=== PATIENT | female | born 1940 | race Caucasian/White ===

== ENCOUNTER → 2017-01-30 | Outpatient (REF) | payer MEDICARE, MEDICAID | LOC: M SFHCPLAZ 16:55 | PROVIDERS: ATTEND Family Medicine | DX: R30.0 Dysuria (principal); E11.9 Type 2 diabetes mellitus without complications | CPT/HCPCS: 36415; 81002; 83036; 87088; 87186; G0463 ==

== ENCOUNTER → 2017-01-30 | Outpatient (REF) | payer MEDICARE, MEDICAID | LOC: M SFHCPLAZ 11:10 | PROVIDERS: ATTEND Family Medicine | DX: R30.0 Dysuria (principal); E11.9 Type 2 diabetes mellitus without complications ==

== ENCOUNTER 2017-09-02 00:31 | Inpatient (IN) | payer MEDICAID, MEDICARE, OTHER ==
[~2017-09-02] VITALS: Ht 152.4 cm; Wt 60.5 kg
[2017-09-02] MEDS ORDERED: JANU25TA PO (00:44)
[2017-09-02] MEDS ORDERED: POTA10CA32 PO (00:44)
[2017-09-02] MEDS ORDERED: HYDR12.55 PO (00:44)
[2017-09-02] MEDS ORDERED: METO1TAB32 PO (00:44)
[2017-09-02] MEDS ORDERED: GLIP2.5T6 PO (00:44)
[2017-09-02] MEDS ORDERED: EZET10TA PO (00:44)
[2017-09-02] MEDS ORDERED: AMLO10TA2 PO (00:44)
[2017-09-02 01:41] LABS: BASO % 0.5 % (0.0-1.0); EOS # 0.2 10^3/uL (0.0-0.50); EOS % 2.3 % (0.0-3.0); IMMATURE GRANULOCYTE % 0.4 % (0-0); LYMPH # 2.3 10^3/uL (1.5-4.5); MEAN CORPUSCULAR HGB CONC 34.3 g/dl (32.0-36.5); MEAN CORPUSCULAR VOLUME 90.5 fl (80.0-96.0); MONO # 0.8 10^3/uL (0.0-0.8); MONO % 10.2 % (0.0-5.0); NEUTROPHILS # 4.7 10^3/uL (1.8-7.7); NEUTROPHILS % 58.6 % (36.0-66.0); PLATELET COUNT, AUTOMATED 228 10^3/uL (150-450); RED CELL DISTRIBUTION WIDTH 13.6 % (11.5-14.5); WHITE BLOOD COUNT 8.1 10^3/uL (4.0-10.0)
[2017-09-02 01:45] LABS: CALCIUM LEVEL 9.7 MG/DL (8.8-10.2); CREATININE FOR GFR 1.47 MG/DL (0.55-1.02); GLOMERULAR FILTRATION RATE 36.7 (>39); INR 0.98; POTASSIUM SERUM 3.4 MEQ/L (3.5-5.1)
[2017-09-02] MEDS ORDERED: HYDR25TAB PO (02:08)
[2017-09-02] MEDS ORDERED: B CO1TAB3 PO (02:08)
[2017-09-02] MEDS ORDERED: BAYE325T12 PO (02:08)
[2017-09-02] MEDS ORDERED: GLIP1TAB49 PO (02:08)
[2017-09-02] MEDS ORDERED: K-TA1TAB PO (02:08)
[2017-09-02] MEDS ORDERED: GASTROGRAFIN SOLUTION 30ML (Q9963) As Ordered ONE (02:09)
[2017-09-02] MEDS ORDERED: GASTROGRAFIN SOLUTION 30ML (Q9963) PO ONE ×2 (02:15→02:45)
[2017-09-02] MEDS ORDERED: GLUCAGON FOR INJ 1 MG VIAL (J1610) SC PRN (02:30)
[2017-09-02] MEDS ORDERED: DEXTROSE 50% 50 ML SYRINGE IV PRN (02:30)
[2017-09-02] MEDS ORDERED: ONDANSETRON 4MG/2ML VIAL (J2405) IV PRN (02:30)
[2017-09-02] MEDS ORDERED: GLUCOSE 4 GM CHEW TABLET PO PRN (02:30)
[2017-09-02] MEDS ORDERED: LR 1,000 ML IV SCH (02:30)
[2017-09-02] MEDS ORDERED: ACETAMINOPHEN TAB 650MG DOSE (2X325MG) PO PRN (02:30)
[2017-09-02] MEDS ORDERED: POTASSIUM CHLORIDE 10 MEQ SR TABLET PO ONE (02:30)
[2017-09-02 02:32] LABS: MAGNESIUM LEVEL 2.1 MG/DL (1.8-2.4)
--- NOTE | 2017-09-02 03:06 | HPE ---
DATE OF ADMISSION: 09/02/2017 PRIMARY CARE PROVIDER: Dr. Gamaliel Pickens. CHIEF COMPLAINT: Bright red blood per rectum. HISTORY OF PRESENT ILLNESS: This is a 76-year-old female patient with underlying medical history of hypertension, type 2 diabetes not insulin dependent, chronic kidney disease (CKD), sees Dr. Doshi, abdominal aortic aneurysm repaired with graft 4 years ago, thoracic aortic aneurysm. Patient presented to the hospital with an episode of bright red blood per rectum. As per patient, was a lot fresh blood initially and later became more of a clotty, two more episodes in the hospital and that was more of clots. Rectal exam during the emergency room showing blood on rectal exam. Patient denies any lightheadedness, chest pain, pressure or discomfort. Reported gassy. Reported history of hemorrhoid bleed. Denies history of diverticulitis. Denies history of atrial fibrillation, is only on aspirin. Denies any chest pain, pressure or discomfort, nausea, vomiting, abdominal pain, shortness of breath. Currently comfortable. Reported bleeding has been slowly getting better with each subsequent bowel movement, a total of three have been reported. No colonoscopy as per patient. ALLERGIES: No known drug allergies. PAST MEDICAL HISTORY: 1. Hypertension. 2. Type 2 diabetes not insulin dependent. 3. CKD. 4. Abdominal aortic aneurysm status post graft. 5. Thoracic aortic aneurysm. PAST SURGICAL HISTORY: 1. Abdominal aortic aneurysm graft. 2. Bilateral tubal ligation. FAMILY HISTORY: Father from ruptured aneurysm. Mother at age 89, had type 2 diabetes and gastrointestinal (GI) bleed. Sibling with diabetes. SOCIAL HISTORY: Quit smoking 23 years ago. Denies alcohol use or illicit drug use. REVIEW OF SYSTEMS: Negative other than bright red blood per rectum and reported gassy. HOME MEDICATIONS: - Norvasc 10 mg by mouth daily - aspirin 325 by mouth daily - vitamin B complex one tablet by mouth daily - glipizide 3 mg by mouth daily - hydrochlorothiazide 25 mg by mouth daily - metoprolol 25 mg by mouth twice a day - potassium chloride 30 mEq by mouth twice a day - Januvia 25 mg by mouth daily PHYSICAL EXAMINATION: VITAL SIGNS: Temperature 97.3, pulse 106, respirations 20, blood pressure 134/81, pulse oximetry 98% on room air. GENERAL: Patient alert and oriented times three in no acute distress. HEENT: Normocephalic, atraumatic. PULMONARY: Bilaterally clear to auscultation. CARDIAC: Regular rate and rhythm. Normal S1, S2. ABDOMEN: Soft, nontender. Positive bowel sounds. EXTREMITIES: No clubbing, cyanosis or edema. LABORATORY: WBC 8.1, hemoglobin and hematocrit 14.3/41.7, platelets 228. Chemistry: Sodium 138, potassium 3.4, chloride 102, bicarbonate 29, BUN 28, creatinine 1.47. ASSESSMENT AND PLAN: This is a 76-year-old female patient with underlying medical history of hypertension, type 2 diabetes non-insulin dependent, chronic kidney disease (CKD), abdominal aortic aneurysm and thoracic aortic aneurysm, presented with bright red blood per rectum. 1. Bright red blood per rectum. Likely secondary to gastrointestinal (GI) bleed. Hemoglobin is stable with stable vital signs. Followup orthostatics. Withholding aspirin for now. Intravenous (IV) fluids. Clear liquid diet. Will get CT scan. Likely diverticular bleed. Patient will eventually need a colonoscopy. In the meantime, will continue to monitor hemoglobin and hematocrit. Transfuse for hemoglobin less than 8. 2. Type 2 diabetes. Holding oral medication. Insulin as per protocol. Followup fingersticks. 3. CKD. Currently at baseline. IV fluids. Followup blood urea nitrogen (BUN) and creatinine. Followup urine output. 4. Abdominal aortic aneurysm and thoracic aortic aneurysm. Patient currently asymptomatic. Will get a chest x-ray. Outpatient followup. 5. Hypertension. Holding hydrochlorothiazide. Continue Norvasc. Monitor blood pressure. 6. Hypokalemia. Followup magnesium. Supplement potassium. 7. Deep venous thrombosis (DVT) prophylaxis. Sequential compression device, avoid pharmacological agents given GI bleed. DISPOSITION: Will monitor patient's hemoglobin and hematocrit. Transfuse as needed. Advance diet as tolerated. MTDD
--- NOTE | 2017-09-02 04:40 | REPUSA ---
CLINICAL HISTORY: Abdominal pain. TECHNIQUE: Multiple axial, sagittal and coronal CT images were obtained through the abdomen and pelvi s without administration of IV contrast material. Patient ingested oral contrast. COMMENTS: Comparison to the prior exam performed on 05/27/2015. Unchanged fat containing umbilical hernia without incarceration. Unchanged fat containing infraumbilical anterior abdominal wall hernia containing nonincarcerated fat . Increase in the size of the lower thoracic/upper abdominal aortic aneurysm measuring 6.9 cm on the cu rrent exam. Surgical repair of infrarenal abdominal aortic aneurysm. No evidence of periaortic hematoma or fat stranding. Uncomplicated sigmoid diverticulosis is again identified. Unchanged cholelithiasis. The liver is of uniform attenuation without mass or defect. There is no intra or extrahepatic biliary ductal dilatation. The spleen is normal. The gallbladder is within normal limits. The pancreas is of normal contour and attenuation characteristics. There is no evidence of adrenal mass. Mild left renal atrophy. No renal or ureteral calculi are identified. There is no hydroureter or hydronephrosis. There is no evidence for appendicitis. No evidence for small or large bowel obstruction. There is no evidence of abdominal ascites or lympha denopathy. There is no evidence of intrinsic or extrinsic bladder mass. There is no pelvic ascites or lymphadeno dino. Images of the lung bases show no evidence of pleural or parenchymal mass. There are no pleural effusi ons. The bony structures are free of lytic or blastic lesions. Multilevel degenerative changes are seen in volving the thoracolumbar spine. Scattered calcifications are seen involving the aorta and major branches compatible with atherosclero sis. IMPRESSION: Increase in the size of the lower thoracic/upper abdominal aortic aneurysm. This needs a surgical con sultation. No surrounding hematoma or periaortic and fat stranding. Surgical repair of infrarenal abdominal aortic aneurysm. Unchanged cholelithiasis and uncomplicated diverticulosis. Thank you for your kind referral of this patient.
[2017-09-02 05:00] VITALS: BP 150/95
[2017-09-02 05:47] LABS: MEAN CORPUSCULAR HGB CONC 34.2 g/dl (32.0-36.5); MEAN CORPUSCULAR VOLUME 90.6 fl (80.0-96.0); RED CELL DISTRIBUTION WIDTH 13.6 % (11.5-14.5); WHITE BLOOD COUNT 9.2 10^3/uL (4.0-10.0)
[2017-09-02 06:12] LABS: ALBUMIN 3.3 GM/DL (3.2-5.2); ALBUMIN/GLOBULIN RATIO 0.8 (1.00-1.93); BILIRUBIN,TOTAL 0.5 MG/DL (0.2-1.0); CALCIUM LEVEL 8.9 MG/DL (8.8-10.2); CREATININE FOR GFR 1.34 MG/DL (0.55-1.02); GLOMERULAR FILTRATION RATE 40.8 (>39); MAGNESIUM LEVEL 1.9 MG/DL (1.8-2.4); POTASSIUM SERUM 3.7 MEQ/L (3.5-5.1); TOTAL PROTEIN 7.4 GM/DL (6.4-8.2)
--- NOTE | 2017-09-02 07:23 | REP ---
Clinical: Thoracic aortic aneurysm. Technique: PA and lateral. Comparison: 03/01/2008. Findings: PA and lateral views demonstrate a tortuous thoracic aorta and aneurysmal dilatation cannot definitively be excluded. The cardiac silhouette is normal. The lung flaherty are clear. No consolidation, effusion, or pneumothorax. Skeletal structures are intact. Impression: Tortuous thoracic aorta. Cannot exclude aneurysmal dilatation. Signed by Nura Mcdaniels MD 09/02/2017 07:14 A
[2017-09-02 08:00] VITALS: BP 143/85
[2017-09-02] MEDS: amLODIPine 10 MG TAB PO SCH (08:12)
[2017-09-02] MEDS: POTASSIUM CHLORIDE 10 MEQ SR TABLET PO SCH ×2 (08:12→20:35)
[2017-09-02] MEDS: METOPROLOL SUCC *XL* 25MG TAB (TopROL *XL*) PO SCH ×2 (08:12→20:35)
[2017-09-02] MEDS: VITAMIN B COMPLEX/VIT C CAP PO SCH (08:12)
[2017-09-02] MEDS: HumaLOG INSULIN (NovoLOG) PER UNIT SC SCH ×2 (08:13→11:38)
[2017-09-02] MEDS: SENOKOT S TAB PO SCH ×2 (08:17→20:38)
--- NOTE | 2017-09-02 09:52 | IPN ---
DATE: 09/02/2017 Fina is seen in intensive care unit (ICU). She was admitted with lower gastrointestinal bleed, probably diverticular bleeding with perfuse rectal bleeding that has spontaneously stopped. She has never had a colonoscopy before. She has declined recommendations for this. She has a history of abdominal aortic aneurysm, thoracic aortic aneurysm and chronic kidneys disease, type 2 diabetes, hypertension. She is followed by a service trainer for her chronic kidney disease. I reviewed her office records. Medications in the office are: - hydrochlorothiazide 25 mg daily - potassium chloride 10 mEq twice a day - Januvia 25 mg daily - Zetia 10 mg daily - metoprolol succinate ER 25 mg twice a day - glipizide ER 5 mg daily - aspirin 325 mg daily - vitamin B complex IMMUNIZATIONS: She has had a Pneumovax in the past. I do not think she has had her Prevnar. She has a known thoracic aortic aneurysm and has a known abdominal aortic aneurysm status post repair. PHYSICAL EXAMINATION: VITAL SIGNS: Stable. Blood pressure 143/85, heart rate in the 80s. GENERAL APPEARANCE: She is alert to person, speaking with her daughter, resting comfortably, not pale. LUNGS: Clear. HEART: Regular rate and rhythm ABDOMEN: Soft, nontender, nondistended. EXTREMITIES: No peripheral edema. LABS: Hemoglobin 12.9, electrolytes are unremarkable. Creatinine 1.3, potassium 3.7. IMPRESSION: Lower gastrointestinal bleed, probably diverticular in origin. PLAN: 1. Continue serial CBCs. I do not think she needs a monitored bed. She is not orthostatic, hypotensive or actively bleeding. I will transfer her up to the floor. Consult GI. She would like a colonoscopy done while an inpatient. She does not want to go home and have to do the prep for this as she is frail and would need help with this. Hopefully, this can be done while she is still in the hospital. 2. Lower thoracic/upper abdominal aortic aneurysm. Apparently, this has increased in size compared to a CT from a year ago. This can be addressed as an outpatient. Dr. Pickens follows her. She has a known aneurysm. I reviewed the records from the office. I do not see who is following her for this as far as vascular surgery, but this can be dealt with as an outpatient. 3. Hypertension: Blood pressure is adequate. Continue her amlodipine and metoprolol. 4. Hyperlipidemia: Does not tolerate statin. She is on Zetia. 5. Diabetes: Oral medications are on hold. She is on a sliding scale with coverage while inpatient. She can resume her oral medication on discharge.
[2017-09-02 12:00] VITALS: BP 118/76
[2017-09-02 12:25] VITALS: BP 134/88
[2017-09-02 16:00] VITALS: BP 134/82
[2017-09-02 20:00] VITALS: BP 141/83
[2017-09-02] MEDS: EZETIMIBE 10 MG TAB (ZETIA) PO SCH (20:35)
[2017-09-02] MEDS ORDERED: HumaLOG INSULIN (NovoLOG) PER UNIT SC SCH (21:00)
--- NOTE | 2017-09-02 22:42 | ECGEPIP ---
Stationary ECG Study [facility] Test Date: 2017-09-02 Pat Name: MIRA JOSEPH Department: Room: [place] [address] Gender: F Soda Maker: marivel : 1940 Requested By: DANIEL MILLER Order Number: [id number] Reading MD: Rowdy Espinal Measurements Intervals [place] Rate: 81 P: 18 AK: 158 QRS: 13 QRSD: 97 T: 26 QT: 394 QTc: 458 Interpretive Statements SINUS RHYTHM NONSPECIFIC T-WAVE ABNORMALITY No prior ECG available for comparison at the time of interpretation. Electronically Signed On 09-02-2017 22:42:21 EDT by Rowdy Espinal
[2017-09-03 04:00] VITALS: BP 120/59
[2017-09-03 06:58] LABS: MEAN CORPUSCULAR HEMOGLOBIN 30.5 pg (27.0-33.0); MEAN CORPUSCULAR HGB CONC 33.7 g/dl (32.0-36.5); MEAN CORPUSCULAR VOLUME 90.4 fl (80.0-96.0); RED CELL DISTRIBUTION WIDTH 13.7 % (11.5-14.5); WHITE BLOOD COUNT 6.5 10^3/uL (4.0-10.0)
[2017-09-03 07:27] LABS: CALCIUM LEVEL 9.7 MG/DL (8.8-10.2); CREATININE FOR GFR 1.12 MG/DL (0.55-1.02); GLOMERULAR FILTRATION RATE 50.2 (>39); POTASSIUM SERUM 3.9 MEQ/L (3.5-5.1)
[2017-09-03 08:00] VITALS: BP 119/67
[2017-09-03] MEDS: HumaLOG INSULIN (NovoLOG) PER UNIT SC SCH ×2 (08:59→09:00)
[2017-09-03] MEDS: SENOKOT S TAB PO SCH ×2 (09:00→20:35)
[2017-09-03] MEDS: POTASSIUM CHLORIDE 10 MEQ SR TABLET PO SCH ×2 (09:00→20:34)
[2017-09-03] MEDS: amLODIPine 10 MG TAB PO SCH (09:01)
[2017-09-03] MEDS: VITAMIN B COMPLEX/VIT C CAP PO SCH (09:02)
[2017-09-03] MEDS: METOPROLOL SUCC *XL* 25MG TAB (TopROL *XL*) PO SCH ×2 (09:03→20:35)
--- NOTE | 2017-09-03 09:25 | IPN ---
DATE: 09/03/2017 Fina is seen in pediatrics. She is wandering the halls. She has had no more rectal bleeding. She was seen by Dr. Garcia. Colonoscopy planned for tomorrow, per patient. PHYSICAL EXAMINATION: VITAL SIGNS: Stable. 119/67. LUNGS: Clear. HEART: Regular rhythm. ABDOMEN: Soft, nontender, nondistended. No masses. EXTREMITIES: No peripheral edema. LABORATORY DATA: Electrolytes unremarkable. Creatinine is down to 1.1. Hemoglobin is stable at 12.7. IMPRESSION: 1. Bright red blood per rectum, probably from diverticular bleed. Colonoscopy tomorrow. Discharge after that. Hemoglobin and hematocrit are stable. 2. Lower thoracic/upper abdominal aortic aneurysm. This can be followed up as an outpatient. It is increased in size compared to a CT from 2015, which was 2 years ago (mistakenly indicated 1 year ago yesterday). This is a previously known aneurysm. She has followed with Dr. Hudson at [facility] in the past. She indicates that she does not want to followup on this. I told her that she should at least consider following up on this and could see Dr. Kimble who is here at [facility] now. She will discuss with Dr. Pickens when she sees him. 3. Hypertension. Well controlled on current regimen. 4. Hyperlipidemia. She does not tolerate statins. She is on Zetia. 5. Diabetes. Oral medications are on hold. Blood sugars are normal. I am stopping her fingersticks and coverage, as she has not required any coverage and her blood sugar has been normal in the hospital.
[2017-09-03] MEDS ORDERED: GOLYTELY SOLN 4000 ML BTL PO ONE (15:00)
[2017-09-03 16:00] VITALS: BP 133/85
[2017-09-03 20:00] VITALS: BP 132/67
[2017-09-03] MEDS: EZETIMIBE 10 MG TAB (ZETIA) PO SCH (20:33)
[2017-09-03] MEDS ORDERED: SODIUM CHLORIDE 0.9% 1000 ML IV ONE (23:15)
[2017-09-03 23:30] VITALS: BP 107/56
--- NOTE | 2017-09-03 23:49 | IPNPDOC ---
Text Note Date of Service The patient was seen on 09/03/17. NOTE Evening resident and attending were contacted regarding patient having more BRBPR again. She was admitted for GI bleed will have colonoscopy tomorrow. She started bleeding again after received bowel prep and she has been going to bathroom about 4 times in an hour. BP dropped from 132/67 to 107/56. NS 500 ml was given. Patient has signed consent for transfusion. She also brought in her MOLST form and stated she is DNR/DNI. Currently she is feeling well, no chest pain, shortness of breath, no dizziness. Will check BP every half hour and repeat CBC. Will considering transfer patient to PCU if patient's systolic BP drops to 90s or if she is symptomatic. Will also have low thresh bridges to transfuse her, depending on what her CBC is like after the fluid bolus. Will also hold her bowel prep for 5am due to it seems to make her bleeding worse. Addendum: Patient's repeat CBC shows Hgb at above 11 even after 500 ml of bolus , therefore will not transfuse at this point. Will continue to trend h/h and will transfuse if patient appears to be loosing large amount of blood or if h/h drops further or if patient become symptomatic with dizziness, tachycardia or reduced blood pressure. Patient has been kept NPO for possible colonoscopy. Patient has been discussed with attending Dr. Naidu. GME ATTESTATION My preceptor for this patient encounter was physically present in the building during the encounter and was fully available. As needed, all aspects of the patient interview, examination, medical decision making process, and medical care plan development were reviewed and approved by the preceptor. Preceptor is aware and concurs with the plan as stated in the body of this note and will attest to such by his/her cosignature. VS,Fishbone, I+O VS, Fishbone, I+O Laboratory Tests 09/03/17 06:43 Red Blood Count 4.17, Mean Corpuscular Volume 90.4, Mean Corpuscular Hemoglobin 30.5, Mean Corpuscular Hemoglobin Concent 33.7, Red Cell Distribution Width 13.7 , Calcium Level 9.7 09/03/17 18:27 Vital Signs Date Time Temp Pulse Resp B/P (MAP) Pulse Ox O2 Delivery O2 Flow Rate FiO2 09/03/17 20:35 74 132/67 09/03/17 20:00 97.8 18 97 Room Air I&O- Last 24 Hours up to 6 AM 09/04/17 06:00 Intake Total 2790 ml Output Total 400 ml Balance 2390 ml KP RICE DO Sep 03, 2017 23:49
[2017-09-04] VITALS (14 sets, daily range): BP systolic 110–161; BP diastolic 70–90
[2017-09-04 02:09] LABS: MEAN CORPUSCULAR HGB CONC 33.9 g/dl (32.0-36.5); MEAN CORPUSCULAR VOLUME 91.3 fl (80.0-96.0); RED CELL DISTRIBUTION WIDTH 13.7 % (11.5-14.5); WHITE BLOOD COUNT 8.6 10^3/uL (4.0-10.0)
[2017-09-04] MEDS ORDERED: GOLYTELY SOLN 4000 ML BTL PO ONE (05:00)
[2017-09-04 08:11] LABS: MEAN CORPUSCULAR HEMOGLOBIN 30.9 pg (27.0-33.0); MEAN CORPUSCULAR HGB CONC 34.2 g/dl (32.0-36.5); MEAN CORPUSCULAR VOLUME 90.5 fl (80.0-96.0); RED CELL DISTRIBUTION WIDTH 13.6 % (11.5-14.5)
[2017-09-04] MEDS: SENOKOT S TAB PO SCH ×2 (08:31→20:56)
[2017-09-04] MEDS: POTASSIUM CHLORIDE 10 MEQ SR TABLET PO SCH ×2 (08:34→21:25)
[2017-09-04] MEDS: VITAMIN B COMPLEX/VIT C CAP PO SCH (08:34)
[2017-09-04 08:35] LABS: CALCIUM LEVEL 9.3 MG/DL (8.8-10.2); GLOMERULAR FILTRATION RATE 57.2 (>39); MAGNESIUM LEVEL 1.9 MG/DL (1.8-2.4); POTASSIUM SERUM 3.9 MEQ/L (3.5-5.1)
[2017-09-04] MEDS ORDERED: LR 1,000 ML IV SCH (08:45)
[2017-09-04] MEDS ORDERED: LIDOCAINE 2% INJ 100 MG/5 ML SDV (FOR ANES.) As Ordered ONE (13:10)
[2017-09-04] MEDS ORDERED: PROPOFOL 200 MG/20 ML VIAL As Ordered ONE (13:10)
--- NOTE | 2017-09-04 15:12 | IPN ---
DATE: 09/04/2017 The patient seen and examined. The patient had bowel prep overnight with persistent bright red blood per rectum that has recurred, about four episodes. Orthostatic was done initially with decrease from 130/79 lying to 110/77 standing. The patient is asymptomatic. Denies any chest pain, pressure or discomfort, fever or chills. VITAL SIGNS: Temperature 97.5, pulse 77, respirations 18, blood pressure 149/83, pulse ox 97% on room air. LABORATORY: WBC 7, hemoglobin and hematocrit 12/35.1, platelet 191. Chemistry: Sodium 141, potassium 3.9, chloride 106, bicarbonate 26, BUN 12, creatinine 1, magnesium 1.9. PHYSICAL EXAMINATION: GENERAL: The patient alert and oriented times three. No acute distress. HEENT: Normocephalic, atraumatic. PULMONARY: Bilateral clear to auscultation. CARDIAC: Regular rate and rhythm. Normal S1, S2. ABDOMEN: Soft, nontender, positive bowel sounds. EXTREMITIES: No clubbing, cyanosis or edema. ASSESSMENT AND PLAN: This is a 76-year-old female patient with underlying medical history of hypertension, type 2 diabetes, non-insulin dependent chronic kidney disease (CKD), abdominal aortic aneurysm, thoracic aortic aneurysm presented with bright red blood per rectum. PROBLEMS: 1. Bright red blood per rectum. Likely secondary to lower GI bleed. Hemoglobin and hematocrit is currently stable. Orthostatic positive. IV fluids. Currently nothing by mouth. Bowel prep for colonoscopy. Dr. Garcia of gastroenterology has been consulted. Consented for transfusion. 2. Type 2 diabetes. Holding oral medications. Insulin as per protocol. 3. Chronic kidney disease (CKD). BUN and creatinine currently at baseline. Continue to follow. 4. Abdominal and thoracic aortic aneurysm. CT shows enlargement. Will need outpatient followup. 5. Hypertension. Continue Norvasc and metoprolol. Doses were held this morning given GI bleed. Will restart once GI bleeding improves. 6. Dyslipidemia. The patient does not tolerate statin. Continue Zetia. 7. Deep venous thrombosis (DVT) prophylaxis. Sequential compression device. DISPOSITION: Pending colonoscopy, clinical improvement. Followup hemoglobin and hematocrit.
--- NOTE | 2017-09-04 15:34 | ROOR ---
Patient Name: Fina Kumar Procedure Date: 09/04/2017 2:34 PM Date of : 1940 Age: 76 Room: [facility] Gender: Female Note Status: Finalized Procedure: Total Colonoscopy + Hot Snare Polypectomy + Bx. Indications: Rectal bleeding Providers: Bean Garcia MD Referring MD: Gamaliel Pickens MD Requesting Provider: Medicines: Monitored Anesthesia Care Complications: No immediate complications. Procedure: Pre-Anesthesia Assessment: - The heart rate, respiratory rate, oxygen saturations, blood pressure, adequacy of pulmonary ventilation, and response to care were monitored throughout the procedure. The Colonoscope was introduced through the anus and advanced to the cecum, identified by appendiceal orifice and ileocecal valve. The colonoscopy was performed without difficulty. The patient tolerated the procedure well. The quality of the bowel preparation was excellent. Findings: The perianal and digital rectal examinations were normal. Multiple small and large-mouthed diverticula were found in the recto-sigmoid colon, sigmoid colon and descending colon. A sessile non-obstructing medium-sized mass was found in the rectum. No bleeding was present. This was biopsied with a cold forceps for histology. A medium polyp was found at 20 cm proximal to the anus. The polyp was pedunculated. The polyp was removed with a hot snare. Resection and retrieval were complete. A small polyp was found at 70 cm proximal to the anus. The polyp was carpet-like. The polyp was removed with a jumbo cold forceps. Resection and retrieval were complete. The exam was otherwise without abnormality on direct and retroflexion views. Impression: - Diverticulosis in the recto-sigmoid colon, in the sigmoid colon and in the descending colon. - Rule out malignancy, tumor in the rectum. Biopsied. - One medium polyp at 20 cm proximal to the anus, removed with a hot snare. Resected and retrieved. - One small polyp at 70 cm proximal to the anus, removed with a jumbo cold forceps. Resected and retrieved. - The examination was otherwise normal on direct and retroflexion views. - The exam was otherwise normal to the cecum. Recommendation: - Patient has a contact number available for emergencies. The signs and symptoms of potential delayed complications were discussed with the patient. Return to normal activities tomorrow. Written discharge instructions were provided to the patient. - [facility] patient to [facility] for [facility] care. - Full liquid diet. - Advance diet as tolerated. - Await pathology results. - Telephone GI clinic for pathology results in 1 week. - Refer to a surgeon at appointment to be scheduled. - The findings and recommendations were discussed with the patient and their family. - The findings and recommendations were discussed with the referring physician. Bean Garcia MD Bean Garcia MD 09/04/2017 3:34:27 PM This report has been signed electronically. Number of Addenda: 0 Note Initiated On: 09/04/2017 2:34 PM Estimated Blood Loss: Estimated blood loss: none.
[2017-09-04] MEDS: METOPROLOL SUCC *XL* 25MG TAB (TopROL *XL*) PO SCH (21:00)
[2017-09-04] MEDS: EZETIMIBE 10 MG TAB (ZETIA) PO SCH (21:25)
[2017-09-05] VITALS: BP_SYST 118; BP_SYST 126; BP_SYST 137; BP_SYST 156; BP_DIAS 75; BP_DIAS 77; BP_DIAS 78; BP_DIAS 82
[2017-09-05 04:00] VITALS: BP 130/83
[2017-09-05 05:14] LABS: MEAN CORPUSCULAR HEMOGLOBIN 30.6 pg (27.0-33.0); MEAN CORPUSCULAR HGB CONC 33.7 g/dl (32.0-36.5); MEAN CORPUSCULAR VOLUME 90.8 fl (80.0-96.0); RED CELL DISTRIBUTION WIDTH 13.4 % (11.5-14.5); WHITE BLOOD COUNT 9.3 10^3/uL (4.0-10.0)
[2017-09-05 05:34] LABS: CALCIUM LEVEL 9.5 MG/DL (8.8-10.2); CREATININE FOR GFR 1.07 MG/DL (0.55-1.02); GLOMERULAR FILTRATION RATE 52.9 (>39); MAGNESIUM LEVEL 1.9 MG/DL (1.8-2.4); POTASSIUM SERUM 3.5 MEQ/L (3.5-5.1)
[2017-09-05 08:00] VITALS: BP_SYST 120; BP_SYST 143; BP_SYST 144; BP_DIAS 76; BP_DIAS 88; BP_DIAS 92
[2017-09-05] MEDS: POTASSIUM CHLORIDE 10 MEQ SR TABLET PO SCH (08:47)
[2017-09-05] MEDS: VITAMIN B COMPLEX/VIT C CAP PO SCH (08:47)
[2017-09-05] MEDS: METOPROLOL SUCC *XL* 25MG TAB (TopROL *XL*) PO SCH (08:50)
[2017-09-05] MEDS: SENOKOT S TAB PO SCH (08:50)
[2017-09-05 09:53] VITALS: BP 135/85
[2017-09-05] MEDS: amLODIPine 10 MG TAB PO SCH (09:53)
--- NOTE | 2017-09-05 10:49 | CR.PDOC ---
[facility] Consultation Consultation DATE OF CONSULTATION: Sep 02, 2017 at 00:31 REFERRING PROVIDER: Dr. Eubanks REASON FOR CONSULTATION/CHIEF COMPLAINT: Thoracoabdominal aortic aneurysm. HISTORY OF PRESENT ILLNESS: Patient is a 76-year-old female with a history of a thoracoabdominal aortic aneurysm and an infrarenal abdominal aortic aneurysm. The patient has previously undergone repair of her infrarenal abdominal aortic aneurysm with an open repair. Patient presented to the hospital with bright red blood per rectum and was evaluated and found to have a mass in the rectum on colonoscopy with 2 polyps which were removed. Patient was referred for surgical evaluation for the rectal mass. Consultation was requested regarding her thoracoabdominal aortic aneurysm in the presence of the mass and possible need for surgical resection. Patient states that after her open abdominal aortic injury repair she did well and was subsequently discharged home within 6 days. Patient denies any rest pain, claudication, TIAs, amaurosis fugax, dysarthria, paralysis, paresis, chest pain or shortness of breath. I have reviewed the CT scan which shows an thoracoabdominal aortic aneurysm which extends into the origin of the celiac and superior mesenteric arteries and measures 6.9 cm in maximal diameter. ALLERGIES: Please see below. HOME MEDICATIONS: Please see below. PAST MEDICAL HISTORY: 1. Hypertension. 2. Diabetes mellitus type 2. 3. Chronic kidney disease 4. Abdominal aortic aneurysm status post repair. 5. Thoracoabdominal aortic aneurysm. PAST SURGICAL HISTORY: 1. Bilateral tubal ligation 2. Open abdominal aortic aneurysm repair FAMILY HISTORY: Father: Ruptured abdominal aortic aneurysm Mother: Type 2 diabetes, gastrointestinal hemorrhage Siblings: Diabetes mellitus Unexpected deaths due to medical reasons: Father secondary to ruptured aortic aneurysm SOCIAL HISTORY: Marital status and/or living arrangements: Lives alone in an apartment Tobacco use: Previous tobacco use, quit smoking approximately 23 years ago ETOH: Denies Illicit drug use: Denies IV drug use: Denies REVIEW OF SYSTEMS: CONSTITUTIONAL: Negative. HEENT: Negative. CARDIOVASCULAR: Thoracoabdominal aortic aneurysm which has been followed regularly. RESPIRATORY: Negative. GENITOURINARY: Chronic kidney disease followed by Dr. Doshi. MUSCULOSKELETAL: Negative. GASTROINTESTINAL: Admitted to the hospital with bright red blood per rectum. SKIN: Negative. NEUROLOGICAL: Negative. PSYCHIATRIC: Negative. ENDOCRINE: Negative. HEMATOLOGIC/LYMPHATIC: Negative. ALLERGIC/IMMUNOLOGIC: Negative. PHYSICAL EXAMINATION: VITAL SIGNS: Please see below. GENERAL APPEARANCE: Lying in bed comfortably in no apparent distress. HEENT: Normal. RESPIRATORY: Clear to auscultation bilaterally with no rhonchi, crackles, or wheezes. CARDIOVASCULAR: Regular rate and rhythm with no murmurs, rubs, or gallops. ABDOMEN: Soft nontender nondistended with no palpable pulsatile mass. Well- healed midline incision. EXTREMITIES: No clubbing, cyanosis or edema. Bilateral upper and lower extremity is are well-perfused. NEUROLOGICAL: Awake alert oriented 3 with no focal deficits. PSYCHIATRIC: Normal. LABORATORY DATA: Please see below. ASSESSMENT/PLAN: 1. 76-year-old female with admission to the hospital with bright red blood per rectum and findings of 2 polyps which were removed and a rectal mass requiring surgical evaluation and possible intervention. Patient has had a previous abdominal aortic aneurysm repair with an open repair through a midline incision and has a thoracoabdominal and aneurysm which has been followed and is now increased in size to 6.9 cm in maximal diameter. The thoracoabdominal aneurysm extends into the origin of the superior mesenteric and celiac arteries. I had a long discussion with the patient regarding her options in respect to her thoracoabdominal aortic aneurysm. One option discussed would be an open thoracoabdominal repair which would be highly risky and most likely result in permanent paralysis. Another option would be a endovascular repair with bypass grafting of these. Mesenteric and celiac arteries and possibly the renal arteries but again this would be highly risky and most likely result in permanent paralysis in the lower extremities. The patient has had these discussions previously with her vascular surgeon in [place] and at that time did not wish to pursue any intervention and at this time she is telling me that she understands that if this rupture she will but does not want to go through any major surgeries regarding her recall abdominal aortic aneurysm. The patient will be evaluated by surgery regarding her rectal mass and she will discuss with them the options and possible interventions but with regards to her thoracoabdominal aortic aneurysm there is no intervention to be performed prior to any surgical intervention for her rectal mass. The patient's questions were answered. She voices understanding of the risks of repairing her aneurysm as well as the risks of continued conservative management of her aneurysm and understands that if the aneurysm ruptures this will result in . Vital Signs/I&O Vital Signs Date Time Temp Pulse Resp B/P (MAP) Pulse Ox O2 Delivery O2 Flow Rate FiO2 09/05/17 09:53 85 135/85 09/05/17 08:00 98.2 16 98 Room Air Laboratory Data Labs 24H Laboratory Tests 2 09/04/17 16:48: 09/05/17 04:56: Nucleated Red Blood Cells % (auto) 0.0, Anion Gap 8, Glomerular Filtration Rate 52.9, Blood Urea Nitrogen 10, Creatinine 1.07H, Sodium Level 138, Potassium Level 3.5, Chloride Level 102, Carbon Dioxide Level 28, Calcium Level 9.5, Magnesium Level 1.9 CBC/BMP Laboratory Tests 09/04/17 10:51 09/04/17 16:48 09/04/17 22:53 09/05/17 04:56 Red Blood Count 4.22, Mean Corpuscular Volume 90.8, Mean Corpuscular Hemoglobin 30.6, Mean Corpuscular Hemoglobin Concent 33.7, Red Cell Distribution Width 13.4 , Calcium Level 9.5 Microbiology Microbiology 09/02/17 Stool Occult Blood (CORRY) - Final, Complete Allergies Coded Allergies: No Known Allergies (Unverified , 09/02/17) Home Medications Scheduled (B Complex with C) 1 Tab Tab, 1 TAB PO DAILY, (Reported) Amlodipine Besylate (Amlodipine Besylate) 10 Mg Tab, 10 MG PO DAILY, (Reported) Aspirin (Perry Aspirin) 325 Mg Tab, 325 MG PO DAILY, (Reported) Ezetimibe (Ezetimibe) 10 Mg Tab, 10 MG PO QHS, (Reported) Glipizide (Glipizide ER) 5 Mg Tab, 5 MG PO DAILY, (Reported) Hydrochlorothiazide (Hydrochlorothiazide) 25 Mg Tab, 25 MG PO DAILY, (Reported) Metoprolol Succinate (Metoprolol Succinate ER) 25 Mg Tab, 25 MG PO BID, ( Reported) Potassium Chloride (K-Tab) 20 Meq Tab, 30 MEQ PO BID, (Reported) Sitagliptin Phosphate (Januvia) 25 Mg Tab, 25 MG PO DAILY, (Reported) Ruddy Kimble MD Sep 05, 2017 10:49
--- NOTE | 2017-09-05 11:17 | CR ---
DATE OF CONSULTATION: 09/02/2017 This is a 76-year-old female admitted to [facility] ([facility]) on 09/02/2017. The patient has a past medical history of hypertension, diabetes mellitus, chronic kidney disease, a history of abdominal aortic aneurysm repaired with graft 4 years ago and a known prior history of left thoracic aortic aneurysm. Patient presented to the hospital with bright red blood per rectum. Patient presented with rectal bleeding. No complaints of abdominal pain, change in bowel habits, or family history of colon cancer. The patient has never had a previous colonoscopy. . She has not required any blood transfusions during this hospitalization. The patient is being seen by gastroenterology (GI) for colonoscopy for evaluation of the rectal bleeding. ALLERGIES: No known declared allergies. MEDICATIONS: Hypertension, type diabetes mellitus, chronic disease, abdominal aortic aneurysm graft, and thoracic aortic aneurysm. PAST SURGICAL HISTORY: Stated as above. FAMILY HISTORY: Noncontributory to the above problem. SOCIAL HISTORY: Cigarettes: The patient does not smoke. Alcohol: Denies. REVIEW OF SYSTEMS: Noncontributory. MEDICATIONS AT HOME: Include: - Norvasc - aspirin - - glipizide - hydrochlorothiazide - PHYSICAL EXAMINATION: General: This is a well-developed, well-nourished white female in no obvious acute distress. Appears stated age. Chest: Is clear to auscultation. Cardiovascular examination: Shows a regular rhythm with no murmurs or gallops physiological split S1 to S2. Abdomen: Soft, nontender. No masses, guarding, rebound, hepatosplenomegaly. Bowel sounds positive. Extremities: No cyanosis, clubbing, edema. Homans negative. ANALYSIS: Bright red blood per rectum. Probable lower gastrointestinal (GI) bleed. The patient's counts are stable since admission of 12.9 and 37.7. The count today is 12.0 and 35.1. Chemistry was normal. IMAGING STUDIES: Including a CT on 09/02/2017 showing an increase in the size of the lower thoracic/upper abdominal aortic aneurysm. No hematoma of surrounding fat. There is repair of the infrarenal abdominal aortic aneurysm. cholelithiasis seen. unchanged gallstones. PLAN: Will be to set the patient up for a colonoscopy.
[2017-09-05 12:00] VITALS: BP 134/78
--- NOTE | 2017-09-05 17:50 | DSES ---
DATE OF ADMISSION: 09/02/2017 DATE OF DISCHARGE: 09/05/2017 CLERICAL WAREHOUSEMAN: Bean Garcia MD VASCULAR SURGEON: Mana Kimble MD GENERAL SURGEON: Aubrey Alvares MD PRIMARY CARE PROVIDER: Gamaliel Pickens MD FINAL DIAGNOSES: 1. Rectal mass. 2. Bright red blood per rectum secondary to diverticular bleed. 3. Colonic polyp. 4. Type 2 diabetes. 5. Chronic kidney disease (CKD). 6. Thoracic aortic aneurysm. 7. Hypertension. 8. Dyslipidemia. HISTORY OF PRESENT ILLNESS: This is a 76-year-old female patient with underlying medical history of hypertension, type 2 diabetes, non-insulin dependent, chronic kidney disease (CKD), sees Dr. Doshi, abdominal aortic aneurysm that was repaired with graft 4 years ago, thoracic aortic aneurysm that was not repaired, presented to the hospital with an episode of bright red blood per rectum as per patient with a lot of fresh blood initially and later became more clotting, two episodes in the emergency room. Rectal exam in the emergency room shows blood in the rectal exam. Patient denies any lightheadedness, chest pain, pressure or discomfort. Reported gassy, history of hemorrhoids. Denies any history of diverticulitis. Denies history of atrial fibrillation. Is only on aspirin. Denies history of chest pain, pressure or discomfort, nausea or vomiting, abdominal pain, shortness of breath. Currently comfortable. HOSPITAL COURSE: Patient is admitted to the hospital. Patient's hemoglobin and hematocrit was monitored and remained relatively stable. IV fluids were provided. At one point patient was orthostatic. Gastroenterology was consulted and patient underwent bowel preparation. Status post colonoscopy with polyp removal and found to have a rectal mass highly suspicious for cancer. Subsequently, general surgery was consulted as well as vascular surgery, Dr. Kimble. As per Dr. Kimble, it is highly risky to repair the thoracic aortic aneurysm and from the vascular perspective patient is optimized to proceed with rectal surgery. Case discussed with Dr. Alvares who would like to see the patient in the office next week for further discussion of management of patient's rectal mass. Pathology is still pending. Patient currently is asymptomatic, no further episodes of GI bleed with normal blood pressure and with stable hemoglobin and hematocrit, ready for discharge with further care as outpatient. VITAL SIGNS: Temperature 98.1, pulse 82, respirations 16, blood pressure 134/78, pulse oximetry 98% on room air. GENERAL: Patient alert and oriented times three, in no acute distress. HEENT: Normocephalic, atraumatic. PULMONARY: Bilaterally clear to auscultation. CARDIAC: Regular rate and rhythm, normal S1, S2. ABDOMEN: Soft, nontender. Positive bowel sounds. EXTREMITIES: No clubbing, cyanosis, or edema. LABORATORY DATA: WBC 9.3, hemoglobin and hematocrit 12.9/38.3, platelets 203. Chemistry: Sodium 138, potassium 3.5, chloride 102, bicarbonate 28, BUN 10, creatinine 1.07. DISCHARGE MEDICATIONS: - Norvasc 10 mg by mouth daily - vitamin B complex by mouth daily - ezetimibe 10 mg by mouth nightly - glipizide 5 mg by mouth daily - hydrochlorothiazide 25 mg by mouth daily - metoprolol 25 mg by mouth twice a day - potassium chloride 30 mEq by mouth twice a day - Januvia 25 mg by mouth daily Patient's aspirin has been on hold until evaluated by primary care provider and surgeon. DISCHARGE INSTRUCTIONS: Patient is instructed to followup with Dr. Alvares on 09/11/2017, followup with patient's own vascular surgeon as outpatient in 2 weeks, and followup with primary care provider in 1 week. Restarting aspirin as per primary care provider. Return to the hospital if symptoms worsen.
== END 2017-09-05 14:00 | disposition home or self-care (01) | DRG 378 ==
LOC: M ED 00:31 → M ED INP 02:25 → M ICU 05:06 → M PED 12:27 → M ICU 09-04 09:45
PROVIDERS: ADMIT Hospitalist; ATTEND Hospitalist
PROC: 0DBP8ZX Excision of Rectum, Via Natural or Artificial Opening Endoscopic, Diagnostic (ICD-10-PCS; principal; 2017-09-04 15:15)
DX: K57.93 Diverticulitis of intestine, part unspecified, without perforation or abscess with bleeding (principal); C20 Malignant neoplasm of rectum; I12.9 Hypertensive chronic kidney disease with stage 1 through stage 4 chronic kidney disease, or unspecified chronic kidney disease; E11.9 Type 2 diabetes mellitus without complications; Z66 Do not resuscitate; E78.5 Hyperlipidemia, unspecified; K63.5 Polyp of colon; I71.2 Thoracic aortic aneurysm, without rupture; N18.9 Chronic kidney disease, unspecified; E87.6 Hypokalemia; Z98.51 Tubal ligation status; Z87.891 Personal history of nicotine dependence; Z79.84 Long term (current) use of oral hypoglycemic drugs; Z79.899 Other long term (current) drug therapy

== ENCOUNTER → 2017-10-18 | Outpatient (CLI) | payer OTHER, MEDICAID ==
[~2017-10-18] MED LIST: AMLO10TA2 PO; B CO1TAB3 PO; BAYE325T12 PO; EZET10TA PO; GLIP1TAB49 PO; GLIP2.5T6 PO; HYDR12.55 PO; HYDR25TAB PO; JANU25TA PO; K-TA1TAB PO; METO1TAB32 PO; POTA10CA32 PO
[2017-10-18 18:32] LABS: FOLATE > 24.0 NG/ML; VITAMIN B12 LEVEL 1085 PG/ML
[2017-10-18 18:38] LABS: FREE T4 1.31 NG/DL (0.76-1.46)
--- NOTE | 2017-10-18 19:23 | REP ---
RIGHT LOWER EXTREMITY DUPLEX VEINS: HISTORY: Edema. There are no filling defects in the deep venous system. The deep venous system is patent. IMPRESSION: There is no deep venous thrombosis. Signed by Ketan Pritchett MD 10/18/2017 07:31 P
== END ==
LOC: M RAD 17:33
PROVIDERS: ATTEND Family Medicine
DX: R60.0 Localized edema (principal); M79.604 Pain in right leg; R53.83 Other fatigue; N18.3 Chronic kidney disease, stage 3 (moderate); Z79.899 Other long term (current) drug therapy
CPT/HCPCS: 36415; 82306; 82607; 82746; 84207; 84439; 84443; 93971; G0463

== ENCOUNTER 2017-10-25 11:17 | Day surgery (SDC) | payer OTHER, MEDICAID ==
[~2017-10-25] VITALS: Ht 154.9 cm; Wt 58.5 kg
[~2017-10-25 11:17] MED LIST changes: +LR 1,000 ML IV ONE
[2017-10-25] MEDS ORDERED: MIDAZOLAM INJ 2 MG/2 ML VIAL (J2250) As Ordered ONE (12:00)
[2017-10-25] MEDS ORDERED: PROPOFOL 200 MG/20 ML VIAL As Ordered ONE (12:00)
[2017-10-25] MEDS ORDERED: ROCURONIUM BROMIDE 50 MG/5 ML VIAL As Ordered ONE (12:00)
[2017-10-25] MEDS ORDERED: ERTAPENEM SODIUM 1 GM in APPROPRIATE DILUENT 1 EA IV ONE (12:00)
[2017-10-25] MEDS ORDERED: fentaNYL 100 MCG/2 ML INJECTION (J3010) As Ordered ONE (12:00)
[2017-10-25] MEDS ORDERED: LIDOCAINE 2% INJ 100 MG/5 ML SDV (FOR ANES.) As Ordered ONE (12:01)
[2017-10-25] MEDS ORDERED: ONDANSETRON 4MG/2ML VIAL (J2405) As Ordered ONE (12:01)
[2017-10-25] MEDS ORDERED: GLYCOPYRROLATE INJ 0.2 MG/ML 2 ML VIAL As Ordered ONE ×2 (12:03→14:59)
[2017-10-25] MEDS ORDERED: LIDOCAINE W/EPINEPHRINE 1% 20ML VIAL As Ordered ONE (12:42)
[2017-10-25] MEDS ORDERED: METOPROLOL TART 25 MG TABLET As Ordered ONE (12:44)
[2017-10-25] MEDS ORDERED: METOPROLOL TART 25 MG TABLET PO ONE (13:00)
[2017-10-25] MEDS ORDERED: NEOSTIGMINE 10 MG/10 ML VIAL (J2710) As Ordered ONE (14:59)
[2017-10-25] MEDS ORDERED: ONDANSETRON 4MG/2ML VIAL (J2405) IV PRN (15:45)
[2017-10-25] MEDS ORDERED: fentaNYL 100 MCG/2 ML INJECTION (J3010) IV PRN (15:45)
[2017-10-25] MEDS ORDERED: LR 1,000 ML IV SCH (15:45)
[2017-10-25] MEDS ORDERED: HYDROmorphone HCL 1 MG/ML SYRINGE (J1170) IV PRN (15:45)
[2017-10-25] MEDS ORDERED: KETOROLAC 30 MG/ML VIAL (J1885) As Ordered ONE (16:04)
[2017-10-25] MEDS ORDERED: KETOROLAC 30 MG/ML VIAL (J1885) IV ONE (16:15)
[2017-10-25] MEDS ORDERED: ACETAMINOPHEN TAB 650MG DOSE (2X325MG) PO PRN (16:15)
[2017-10-25] MEDS ORDERED: NORCO, ANEXSIA 5/325MG TABLET (HYDROcodone/ACETAMINOPHEN) PO PRN (16:15)
[2017-10-25 16:20] VITALS: BP 143/76
[2017-10-25 16:50] VITALS: BP 145/77
[2017-10-25 17:20] VITALS: BP 135/81
[2017-10-25 18:20] VITALS: BP 138/82
[2017-10-25] MEDS: POTASSIUM CHLORIDE 10 MEQ SR TABLET PO SCH (21:24)
[2017-10-25] MEDS: METOPROLOL SUCC *XL* 25MG TAB (TopROL *XL*) PO SCH (21:25)
[2017-10-25 22:00] VITALS: BP 112/59
[2017-10-26 02:00] VITALS: BP 117/65
[2017-10-26 06:00] VITALS: BP 112/68
[2017-10-26] MEDS ORDERED: amLODIPine 10 MG TAB PO SCH (09:00)
[2017-10-26] MEDS ORDERED: glipiZIDE XL 5 MG TABCR PO SCH (09:00)
[2017-10-26] MEDS ORDERED: SITagliptin 50 MG TAB (JANUVIA) PO SCH (09:00)
[2017-10-26] MEDS ORDERED: hydroCHLOROthiazide 25 MG TAB PO SCH (09:00)
[2017-10-26 09:56] VITALS: BP 133/75
[2017-10-26] MEDS: METOPROLOL SUCC *XL* 25MG TAB (TopROL *XL*) PO SCH (09:56)
[2017-10-26] MEDS: POTASSIUM CHLORIDE 10 MEQ SR TABLET PO SCH (09:57)
--- NOTE | 2017-10-28 09:06 | RO ---
DATE OF PROCEDURE: 10/25/2017 PREOPERATIVE DIAGNOSIS: Rectal cancer. POSTOPERATIVE DIAGNOSIS: Rectal cancer. PROCEDURE PERFORMED: Transanal resection of rectal cancer. SURGEON: Dr. Alvares ASSISTANT MANAGER BILINGUAL: Dr. Milton ANESTHESIA: General. INDICATIONS FOR PROCEDURE: The patient is a 76-year-old woman who had recently been seen in the hospital for rectal bleeding. She underwent colonoscopy. She was found to have a pedunculated polyp higher up in the colon which was felt to be the source of her bleeding and this was resected. She was also found to have a small exophytic mass in the rectum and biopsies revealed adenocarcinoma. The patient has previously undergone an open repair of an abdominal aortic aneurysm. She has one atrophic kidney. She has a 6.9 cm thoracoabdominal aortic aneurysm which unfortunately is felt to be extremely high risk for spinal cord ischemia with paralysis if this were treated. The patient has decided not to undergo any surgery. The patient does not wish to undergo an extensive rectal resection for her cancer. We have therefore discussed other alternative treatments to a low anterior resection. She is now for a transanal resection of the cancer likely to be followed by radiation therapy to reduce the risk of recurrence. OPERATIVE PROCEDURE: The patient was brought to the operating room and placed under general endotracheal anesthesia. She was rolled into a prone position and positioned into a jackknife position flexed at the hips with the lower extremities elevated on pillows at the ankle. Pressure points were padded. A digital rectal examination revealed the mass palpable in the distal rectum on the right lateral position. The perineum was prepped and draped. A Valerio anal speculum was inserted and the mass was identified. This was approximately 3-1/2 cm in length x 1-1/2 cm in width and running essentially transversely across the wall of the rectum. Retractors were placed to expose this area optimally. Two stay sutures of #2-0 Vicryl were placed above the tumor in the wall of the rectum to control the upper edge. Then using the needle tip cautery the mucosa was incised circumferentially around the mass taking a small margin on all sides. The dissection was carried down through the muscular wall of the rectum into the perirectal fat. This was elevated away from the fatty tissue and the tumor was removed. I would note that prior to beginning the dissection approximately 10 mL of 1% Xylocaine with epinephrine were infiltrated around the base of the lesion to try to diminish bleeding. Several small fragments of tissue around the edges of the wound were excised and sent with the specimen. The muscle layer was then closed with interrupted simple sutures of #3-0 Vicryl. The mucosa was then also closed with interrupted simple sutures of #3-0 Vicryl. Final inspection revealed a good closure and there was no ongoing bleeding. The retractors were removed. A light dressing of 4x4s was placed over the anus. The patient was returned to a supine position and she was awakened and extubated and transported to the recovery room in stable condition.
== END 2017-10-26 10:15 | disposition home or self-care (01) ==
LOC: M SDC 11:17 → M MSPAV 16:19 → M SDC 10-26 10:15
PROVIDERS: ATTEND Surgery
DX: C18.9 Malignant neoplasm of colon, unspecified (principal); R60.0 Localized edema; R53.83 Other fatigue; E11.22 Type 2 diabetes mellitus with diabetic chronic kidney disease; N18.4 Chronic kidney disease, stage 4 (severe); F33.0 Major depressive disorder, recurrent, mild; I12.9 Hypertensive chronic kidney disease with stage 1 through stage 4 chronic kidney disease, or unspecified chronic kidney disease; I71.6 Thoracoabdominal aortic aneurysm, without rupture; M51.9 Unspecified thoracic, thoracolumbar and lumbosacral intervertebral disc disorder; Z88.1 Allergy status to other antibiotic agents; Z88.8 Allergy status to other drugs, medicaments and biological substances; Z79.899 Other long term (current) drug therapy; Z98.51 Tubal ligation status; Z78.0 Asymptomatic menopausal state; Z90.5 Acquired absence of kidney; Z87.891 Personal history of nicotine dependence
CPT/HCPCS: 45171; 88309; 96374; J1885; J2250; J2405; J2710; J3010

== ENCOUNTER → 2017-11-05 | Outpatient (REF) | payer OTHER, MEDICAID ==
[~2017-11-05] MED LIST changes: -LR 1,000 ML IV ONE
== END ==
LOC: M LAB REF 15:18
PROVIDERS: ATTEND Internal Medicine Medical Oncology
DX: C18.9 Malignant neoplasm of colon, unspecified (principal)

== ENCOUNTER → 2018-06-17 | Outpatient (REF) | payer MEDICARE ==
[2018-06-18 09:55] LABS: APPEARANCE, URINE HAZY (CLEAR); BACTERIA, URINE AUTO NEGATIVE (NEGATIVE); BILIRUBIN, URINE AUTO NEGATIVE (NEGATIVE); BLOOD, URINE BLOOD NEGATIVE (NEGATIVE); COLOR, URINE YELLOW (YELLOW); GLUCOSE, URINE (UA) AUTO NEGATIVE (NEGATIVE); KETONE, URINE AUTO NEGATIVE (NEGATIVE); LEUKOCYTE ESTERASE, URINE AUTO TRACE (NEGATIVE); MUCUS, URINE SMALL (NEGATIVE); NITRITE, URINE AUTO NEGATIVE (NEGATIVE); PROTEIN, URINE AUTO 2+ mg/dL (NEGATIVE); RBC, URINE AUTO 0 /HPF (0-3); SPECIFIC GRAVITY URINE AUTO 1.011 (1.002-1.035); SQUAMOUS EPITHELIAL CELL UR AU 1 /HPF (0-6); WBC, URINE AUTO 18 /HPF (0-3)
== END ==
LOC: M SFHCPLAZ 09:36
DX: R30.0 Dysuria (principal)
CPT/HCPCS: 81001

== ENCOUNTER 2018-12-01 08:19 | Day surgery (SDC) | payer MEDICARE, MEDICAID ==
[~2018-12-01] VITALS: Ht 157.5 cm; Wt 61.2 kg
[~2018-12-01 08:19] MED LIST changes: -AMLO10TA2 PO; +AMLO10TA5 PO; +ASPI325T25 PO; -GLIP1TAB49 PO; +GLIP5TAB20 PO; +LIDOCAINE 2% INJ 100 MG/5 ML SDV (FOR ANES.) As Ordered ONE; +NS 1,000 ML IV ONE; +PROPOFOL 200 MG/20 ML VIAL As Ordered ONE; +VITA100067 PO
[2018-12-01] MEDS ORDERED: PROPOFOL 200 MG/20 ML VIAL As Ordered ONE (09:59)
--- NOTE | 2018-12-01 10:17 | ROOR ---
Patient Name: Fina Kumar Procedure Date: 12/01/2018 9:31 AM Date of : 1940 Age: 78 Room: [facility] Gender: Female Note Status: Finalized Procedure: Total Colonoscopy to Cecum + Cold Snare Polypectomy + Hemoclips Indications: High risk colon cancer surveillance: Personal history of colon cancer Providers: Bean Garcia MD Referring MD: Gamaliel Pickens MD Requesting Provider: Medicines: Monitored Anesthesia Care Complications: No immediate complications. Procedure: Pre-Anesthesia Assessment: - The heart rate, respiratory rate, oxygen saturations, blood pressure, adequacy of pulmonary ventilation, and response to care were monitored throughout the procedure. The Colonoscope was introduced through the anus and advanced to the cecum, identified by appendiceal orifice and ileocecal valve. The colonoscopy was performed without difficulty. The patient tolerated the procedure well. The quality of the bowel preparation was excellent. Findings: The perianal and digital rectal examinations were normal. Non-bleeding internal hemorrhoids were found during retroflexion. The hemorrhoids were small and Grade I (internal hemorrhoids that do not prolapse). Multiple small and large-mouthed diverticula were found in the recto-sigmoid colon, sigmoid colon and descending colon. Two sessile polyps were found in the ascending colon. The polyps were large in size. These polyps were removed with a cold snare. Resection and retrieval were complete. A medium polyp was found at 60 cm proximal to the anus. The polyp was pedunculated. The polyp was removed with a cold snare. Resection and retrieval were complete. To prevent bleeding after the polypectomy, two hemostatic clips were successfully placed (MR conditional). There was no bleeding at the end of the procedure. The exam was otherwise without abnormality on direct and retroflexion views. Impression: - Non-bleeding internal hemorrhoids. - Diverticulosis in the recto-sigmoid colon, in the sigmoid colon and in the descending colon. - Two large polyps in the ascending colon, removed with a cold snare. Resected and retrieved. - One medium polyp at 60 cm proximal to the anus, removed with a cold snare. Resected and retrieved. Clips (MR conditional) were placed. - The examination was otherwise normal on direct and retroflexion views. - The exam was otherwise normal to the cecum. Recommendation: - Patient has a contact number available for emergencies. The signs and symptoms of potential delayed complications were discussed with the patient. Return to normal activities tomorrow. Written discharge instructions were provided to the patient. - High fiber diet. - Discharge patient to home. - Continue present medications. - Await pathology results. - Repeat colonoscopy for surveillance based on pathology results. - Return to referring physician. - Telephone GI clinic for pathology results in 1 week. - The findings and recommendations were discussed with the patient's family. Bean Garcia MD Bean Garcia MD 12/01/2018 10:17:38 AM This report has been signed electronically. Number of Addenda: 0 Note Initiated On: 12/01/2018 9:31 AM Estimated Blood Loss: Estimated blood loss: none.
[2018-12-01 10:40] VITALS: BP 123/83
== END 2018-12-01 11:03 | disposition home or self-care (01) ==
LOC: M OPP 08:19
PROVIDERS: ATTEND Internal Medicine Gastroenterology
DX: Z86.010 Personal history of colon polyps (principal); Z85.048 Personal history of other malignant neoplasm of rectum, rectosigmoid junction, and anus; K64.0 First degree hemorrhoids; K57.30 Diverticulosis of large intestine without perforation or abscess without bleeding; D12.2 Benign neoplasm of ascending colon; E11.9 Type 2 diabetes mellitus without complications; Z87.891 Personal history of nicotine dependence; Z79.82 Long term (current) use of aspirin; Z79.899 Other long term (current) drug therapy; Z88.1 Allergy status to other antibiotic agents; Z88.8 Allergy status to other drugs, medicaments and biological substances

== ENCOUNTER → 2019-01-15 | Outpatient (REF) | payer MEDICARE, MEDICAID ==
[~2019-01-15] MED LIST changes: -LIDOCAINE 2% INJ 100 MG/5 ML SDV (FOR ANES.) As Ordered ONE; -NS 1,000 ML IV ONE; -PROPOFOL 200 MG/20 ML VIAL As Ordered ONE
[2019-01-15 18:54] LABS: HEMOGLOBIN A1c 6.9 %
[2019-01-15 19:06] LABS: CALCIUM LEVEL 9.5 MG/DL (8.8-10.2); CREATININE FOR GFR 1.93 MG/DL (0.55-1.30); GLOMERULAR FILTRATION RATE 26.7 (>39)
[2019-01-15 19:17] LABS: TOTAL 25(OH) VITAMIN D 52.4 NG/ML (30.0-100.0)
== END ==
LOC: M SFHCPLAZ 14:50
PROVIDERS: ATTEND Family Medicine
DX: E11.22 Type 2 diabetes mellitus with diabetic chronic kidney disease (principal); N18.3 Chronic kidney disease, stage 3 (moderate); E55.9 Vitamin D deficiency, unspecified

== ENCOUNTER 2019-02-27 17:00 | Emergency (ER) | payer MEDICARE, MEDICAID ==
[~2019-02-27] VITALS: Ht 157.5 cm; Wt 61.4 kg
[~2019-02-27 17:00] MED LIST changes: -COLA100C5 PO; -MIRA3350 PO
--- NOTE | 2019-02-27 18:25 | REP ---
Abdomen series: Three views. History: Abdomen pain. Question constipation. Comparison study is from September 02, 2017. Findings: Upright chest radiograph shows no evidence of infiltrate or free subdiaphragmatic air. The thoracic aorta is quite tortuous and ectatic. Distal thoracic aortic aneurysm suspected. This is unchanged from August 2017. Heart does not appear to be enlarged. Supine and erect views of the abdomen demonstrate a large gallstone in the right upper quadrant. This calcified gallstone measures 4.2 cm in greatest diameter. It is unchanged in position from comparison CT study September 02, 2017. Bowel gas pattern is normal with moderate stool in the right colon and transverse colon. No rectal or sigmoid distension is seen. No small bowel dilation is observed. Flank stripes and psoas margins are intact. No mass or organomegaly is seen. There are surgical clips in the periaortic region. Levoconvex curvature is seen. No evidence of free air. Impression: Large gallstone. Distal thoracic aortic aneurysm suspected, unchanged. Moderate proximal colonic stool. Surgical clips centrally in the abdomen. Otherwise negative. Electronically Signed by Jesus Encinas MD 02/27/2019 08:13 P
[2019-02-27] MEDS ORDERED: MIRA3350 PO (18:57)
[2019-02-27] MEDS ORDERED: COLA100C5 PO (18:57)
[2019-02-27] MEDS ORDERED: DOCUSATE SODIUM 100 MG CAP PO ONE (19:00)
[2019-02-27 19:07] VITALS: BP 145/85
--- NOTE | 2019-03-02 13:42 | ED PDOC ---
Post-Departure Follow-Up dr swartz faxed formal report of abdl series for fu Lexy Hussein MD Mar 02, 2019 13:42
== END 2019-02-27 19:09 | disposition home or self-care (01) ==
LOC: M ED 17:00
DX: K59.00 Constipation, unspecified (principal); E11.9 Type 2 diabetes mellitus without complications; I10 Essential (primary) hypertension; Q60.0 Renal agenesis, unilateral; Z79.899 Other long term (current) drug therapy; Z79.84 Long term (current) use of oral hypoglycemic drugs; Z79.82 Long term (current) use of aspirin; Z88.1 Allergy status to other antibiotic agents; Z88.8 Allergy status to other drugs, medicaments and biological substances; Z87.891 Personal history of nicotine dependence
CPT/HCPCS: 74021; 81002; 87086; 99283; G0463

== ENCOUNTER → 2019-02-27 | Outpatient (REF) | payer MEDICARE, MEDICAID ==
[~2019-02-27] MED LIST changes: +ASPI-255 PO; -ASPI325T25 PO; +COLA100C5 PO; +MIRA3350 PO
== END ==
LOC: M SFHCCLAY 16:30
PROVIDERS: ATTEND Physician Assistant
DX: R10.9 Unspecified abdominal pain (principal)

== ENCOUNTER → 2019-03-16 | Outpatient (CLI) | payer MEDICARE, MEDICAID ==
[~2019-03-16] MED LIST changes: +COLA100C5 PO; +MIRA3350 PO
[2019-03-16 19:25] LABS: BASO # 0.1 10^3/uL (0.0-0.2); BASO % 0.7 % (0.0-1.0); EOS # 0.1 10^3/uL (0.0-0.50); EOS % 1.2 % (0.0-3.0); HEMATOCRIT 41.6 % (36.0-47.0); HEMOGLOBIN 13.9 g/dl (12.0-15.5); LYMPH # 1.9 10^3/uL (1.5-4.5); LYMPH % 17.9 % (24.0-44.0); MEAN CORPUSCULAR HEMOGLOBIN 30.3 pg (27.0-33.0); MEAN CORPUSCULAR HGB CONC 33.4 g/dl (32.0-36.5); MEAN CORPUSCULAR VOLUME 90.8 fl (80.0-96.0); MONO # 1.1 10^3/uL (0.0-0.8); MONO % 10.4 % (0.0-5.0); NEUTROPHILS # 7.3 10^3/uL (1.8-7.7); PLATELET COUNT, AUTOMATED 252 10^3/uL (150-450); RED BLOOD COUNT 4.58 10^6/uL (4.00-5.40); WHITE BLOOD COUNT 10.6 10^3/uL (4.0-10.0)
[2019-03-16 19:38] LABS: CALCIUM LEVEL 9.5 MG/DL (8.8-10.2); CREATININE FOR GFR 1.58 MG/DL (0.55-1.30); GLOMERULAR FILTRATION RATE 33.6 (>39); MAGNESIUM LEVEL 2.5 MG/DL (1.8-2.4); POTASSIUM SERUM 4.1 MEQ/L (3.5-5.1); THYROID STIMULATING HORMONE 1.79 uIU/ML (0.358-3.740); THYROXINE (T4) 15.3 UG/DL (4.5-12.0)
[2019-03-16 19:39] LABS: TOTAL T3 77.7 NG/DL (60.0-181.0)
== END ==
LOC: M WUC 17:53
PROVIDERS: ATTEND Family Medicine
DX: R53.83 Other fatigue (principal); N18.3 Chronic kidney disease, stage 3 (moderate)
CPT/HCPCS: 36415; 80048; 83735; 84436; 84443; 84480; 85025; 87088; 87186; G0463

== ENCOUNTER 2019-06-08 20:39 | Inpatient (IN) | payer MEDICARE, MEDICAID ==
[~2019-06-08] VITALS: Ht 157.5 cm; Wt 57.8 kg
[~2019-06-08 20:39] MED LIST changes: -EZET10TA PO; +EZET10TA21 PO
[2019-06-08] MEDS ORDERED: ONDANSETRON 4MG/2ML VIAL (J2405) IV ONE (21:00)
[2019-06-08] MEDS ORDERED: NS 1,000 ML IV ONE (21:00)
[2019-06-08] MEDS ORDERED: PANTOPRAZOLE 40MG INJ (PROTONIX) (C9113) IV ONE (21:00)
[2019-06-08 21:01] LABS: BASO # 0.1 10^3/uL (0.0-0.2); BASO % 0.5 % (0.0-1.0); EOS # 0.1 10^3/uL (0.0-0.50); HEMATOCRIT 29.6 % (36.0-47.0); HEMOGLOBIN 9.7 g/dl (12.0-15.5); LYMPH # 2.6 10^3/uL (1.5-4.5); LYMPH % 23.5 % (24.0-44.0); MEAN CORPUSCULAR HGB CONC 32.8 g/dl (32.0-36.5); MEAN CORPUSCULAR VOLUME 94.6 fl (80.0-96.0); MONO % 8.8 % (0.0-5.0); NEUTROPHILS # 7.3 10^3/uL (1.8-7.7); NEUTROPHILS % 65.5 % (36.0-66.0); PLATELET COUNT, AUTOMATED 200 10^3/uL (150-450); RED BLOOD COUNT 3.13 10^6/uL (4.00-5.40); WHITE BLOOD COUNT 11.1 10^3/uL (4.0-10.0)
[2019-06-08 21:13] LABS: INR 1.18; PROTHROMBIN TIME 14.7 SECONDS (11.8-14.0)
[2019-06-08 21:27] LABS: ALBUMIN 2.9 GM/DL (3.2-5.2); ALT/SGPT 23 U/L (12-78); BILIRUBIN,DIRECT 0.2 MG/DL (0.0-0.2); BILIRUBIN,TOTAL 0.7 MG/DL (0.2-1.0); BLOOD UREA NITROGEN 52 MG/DL (7-18); CALCIUM LEVEL 9.1 MG/DL (8.8-10.2); CARBON DIOXIDE LEVEL 25 MEQ/L (21-32); CHLORIDE LEVEL 104 MEQ/L (98-107); CK-MB VALUE MASS < 1.0 NG/ML (<3.6); CPK CREATINE PHOSPHOKINASE 63 U/L (26-192); CREATININE FOR GFR 1.75 MG/DL (0.55-1.30); GLOMERULAR FILTRATION RATE 29.8 (>39); GLUCOSE, FASTING 215 MG/DL (70-100); LIPASE 188 U/L (73-393); MB/CK RELATIVE INDEX 1.59 (< OR =4); POTASSIUM SERUM 4.7 MEQ/L (3.5-5.1); SODIUM LEVEL 139 MEQ/L (136-145); TROPONIN I < 0.02 NG/ML (< 0.10)
[2019-06-08] MEDS ORDERED: B COTAB3 PO (23:11)
[2019-06-08] MEDS ORDERED: D31000TA PO (23:11)
[2019-06-08] MEDS: NS 1,000 ML IV SCH (23:12)
[2019-06-08] MEDS ORDERED: GLUCAGON FOR INJ 1 MG VIAL (J1610) SC PRN (23:15)
[2019-06-08] MEDS ORDERED: GLUCOSE 4 GM CHEW TABLET PO PRN (23:15)
[2019-06-08] MEDS ORDERED: DEXTROSE 50% 50 ML SYRINGE IV PRN (23:15)
--- NOTE | 2019-06-08 23:23 | HPEPDOC ---
General Date of Admission 06/08/19 Date of Service: Jun 09, 2019 Primary Care Physician: KENNEDI MONSIVAIS DO Attending Physician: MALI DELACRUZ MD Chief Complaint The patient is a 78-year-old female admitted with a reason for visit of Weakness/Vomiting. Source: Patient, Family Exam Limitations: No limitations Timing/Duration: 4-6 hours Severity: Moderate Associated Symptoms: Nausea, Vomiting, Other (, diarrhea) History of Present Illness 78 years old white female with past medical history of rectal carcinoma status post resection, hypertension, diabetes mellitus, vitamin D deficiency, constipation, has not been feeling herself lately last few days she's been tired, fatigue again today. She had a nausea, vomiting, followed by an episode of diarrhea with with coffee-ground and red blood in it and she was brought into emergency room for further workup and admission Home Medications Scheduled Aspirin (Aspirin EC) 325 Mg Tabec, 325 MG PO DAILY, (Reported) Cholecalciferol (Vitamin D3) (Vitamin D3) 1,000 Unit Tablet, 1,000 UNIT PO DAILY, (Reported) Ezetimibe (Ezetimibe) 10 Mg Tab, 10 MG PO QHS, (Reported) Glipizide (Glipizide ER) 5 Mg Tab, 5 MG PO DAILY, (Reported) Metoprolol Succinate (Metoprolol Succinate) 25 Mg Tab, 25 MG PO BID, (Reported) Sitagliptin Phosphate (Januvia) 25 Mg Tab, 25 MG PO DAILY, (Reported) Vitamin B Complex (Vitamin B Complex) 1 Each Tablet, 1 TAB PO DAILY, (Reported) Allergies Coded Allergies: cephalexin (Verified Allergy, Severe, tongue swelling, 02/19/19) atorvastatin (Verified Allergy, Intermediate, swelling, muscle aches, 02/19/19) rosiglitazone (Verified Allergy, Intermediate, swelling, 02/19/19) Past Medical History Medical History Colon carcinoma, AAA repair, history of thoracic aortic aneurysm, hypertension, diabetes Surgical History AAA repair, colon surgery Family History Significant Family History: No pertinent family hx Social History * Smoker: Denies Alcohol: Denies Drugs: denies A-FIB/CHADSVASC A-FIB History Current/History of A-Fib/PAF?: No Review of Systems Constitutional: Reports: Weakness, Fatigue; Denies: Chills, Fever, Malaise, Night Sweats, Weight Loss, Lethargy, Other Eyes: Denies: Pain, Vision change, Conjunctivae inflammation, Eyelid inflammation, Redness, Other ENT: Denies: Head Aches, Ear Pain, Dysphagia, Sinus Congestion, Post Nasal Drip, Sore Throat, Epistaxis, Other Symptoms Skin: Denies: Rash, Lesions, Jaundice, Bruising, Itching, Dry, Breakdown, Nail Changes, Other Pulmonary: Denies: Dyspnea, Cough, Pleuritic Chest Pain, Other Symptoms Cardiovascular: Denies: Chest Pain, Palpitations, Orthopnea, Paroxysmal Noc. Dyspnea, Edema, Lt Headedness, Other Symptoms Gastrointestinal: Reports: Nausea, Vomiting, Diarrhea Genitourinary: Denies: Dysuria, Frequency, Incontinence, Hematuria, Retention, Other Symptoms Hematologic: Denies: Bruising, Bleeding Excessively, Petecchia, Purpura, Enlarged Lymph Nodes, Other Hematologic Endocrine: Denies: Polydipsia, Polyphagia, Polyuria, Heat Intolerance, Cold Intolerance, Other Endocrine Sx Musculoskeletal: Denies: Neck Pain, Back Pain, Shoulder Pain, Arm Pain, Hand Pain, Leg Pain, Foot Pain, Joint Pain, Muscle Pain, Spasms, Other Symptoms Neurological: Denies: Weakness, Numbness, Incoordination, Change in speech, Con fusion, Seizures, Other Symptoms Psych: Denies: Mood Normal, Anxiety, Depression, Memory Issues, Thoughts of Self Harm, Anger, Thoughts of Harming Other, Other Psych Physical Examination General Exam: Positive: Alert, Cooperative Eye Exam: Positive: PERRLA, Conjunctiva & lids normal ENT Exam: Positive: Atraumatic, Mucous membr. moist/pink Neck Exam: Positive: Supple Chest Exam: Positive: Clear to auscultation, Normal air movement Heart Exam: Positive: Rate Normal, Normal S1, Normal S2 Abdomen Exam: Positive: Normal bowel sounds, Soft Extremity Exam: Positive: Normal pulses Skin Exam: Positive: Nl turgor and temperature Neuro Exam: Positive: Strength at 5/5 X4 ext, Sensation Intact Psych Exam: Positive: Mental status NL, Oriented x 3 Vital Signs Vital Signs Date Time Temp Pulse Resp B/P (MAP) Pulse Ox O2 Delivery O2 Flow Rate FiO2 06/08/19 22:15 79 117/70 (86) 98 06/08/19 22:09 97.3 06/08/19 21:24 14 Laboratory Data Labs 24H Laboratory Tests 2 06/08/19 20:46: Immature Granulocyte % (Auto) 0.7, White Blood Count 11.1H, Red Blood Count 3.13L, Hemoglobin 9.7L, Hematocrit 29.6L, Mean Corpuscular Volume 94.6, Mean Corpuscular Hemoglobin 31.0, Mean Corpuscular Hemoglobin Concent 32.8, Red Cell Distribution Width 14.1, Platelet Count 200, Neutrophils (%) (Auto) 65.5, Lymphocytes (%) (Auto) 23.5L, Monocytes (%) (Auto) 8.8H, Eosinophils (%) (Auto) 1.0, Basophils (%) (Auto) 0.5, Neutrophils # (Auto) 7.3, Lymphocytes # (Auto) 2.6, Monocytes # (Auto) 1.0H, Eosinophils # (Auto) 0.1, Basophils # (Auto) 0.1, Nucleated Red Blood Cells % (auto) 0.0, Prothrombin Time 14.7H, Prothromb Time International Ratio 1.18, Anion Gap 10, Glomerular Filtration Rate 29.8L, Calcium Level 9.1, Aspartate Amino Transf (AST/SGOT) 24, Alanine Aminotransferase (ALT/SGPT) 23, Alkaline Phosphatase 66, Total Bilirubin 0.7, Direct Bilirubin 0.2, Total Creatine Kinase 63, Creatine Kinase MB < 1.0, Creatine Kinase MB Relative Index 1.59, Troponin I < 0.02, Total Protein 6.0L, Albumin 2.9L, Albumin/Globulin Ratio 0.94L, Lipase 188 06/08/19 20:49: Bedside Glucose (Misc Panel) 213H CBC/BMP Laboratory Tests 06/08/19 20:46 Red Blood Count 3.13 L, Mean Corpuscular Volume 94.6, Mean Corpuscular Hemoglobin 31.0, Mean Corpuscular Hemoglobin Concent 32.8, Red Cell Distribution Width 14.1, Neutrophils (%) (Auto) 65.5, Lymphocytes (%) (Auto) 23.5 L, Monocytes (%) (Auto) 8.8 H, Eosinophils (%) (Auto) 1.0, Basophils (%) (Auto) 0.5, Neutrophils # (Auto) 7.3, Lymphocytes # (Auto) 2.6, Monocytes # (Auto) 1.0 H, Eosinophils # (Auto) 0.1, Basophils # (Auto) 0.1 Problems (1) GI bleed Status: Acute Problem Text: Admit to PCU under telemetry for close observation Serial H&H GI consult with Dr. Garcia as he had seen her in the past Keep patient nothing by mouth Normal saline at 80 mL per hour Protonix 40 mg IV every 12 hours Hold all by mouth meds CT abdomen and pelvis without contrast secondary to elevated BNP and creatinine Follow a.m. labs DVT prophylaxis with bilateral SCDs Fingerstick blood sugar coverage every 6 hours Further, as per GI recommendation (2) Malignant neoplasm of rectum Status: Acute Problem Text: History of rectal carcinoma status post resection by Dr. Alvares, and has seen Dr. Garcia for GI in the past Will await consult from Dr. Garcia for further recommendations Plan / VTE VTE Prophylaxis Ordered?: Yes MALI DELACRUZ MD Jun 08, 2019 23:23
[2019-06-09] VITALS (7 sets, daily range): BP systolic 105–139; BP diastolic 59–95
[2019-06-09] MEDS: HumaLOG INSULIN (NovoLOG) PER UNIT SC SCH ×5 (01:22→23:47)
--- NOTE | 2019-06-09 02:50 | REP ---
Clinical: Chest pain and weakness . Comparison: 09/02/2017 . Findings: The mediastinum and cardiac silhouette are stable. The cardiac silhouette is normal. Tortuous thoracic aorta is again noted. The lung flaherty are clear without acute consolidation, effusion, or pneumothorax. Skeletal structures are intact. Impression: No acute cardiopulmonary process appreciated. Tortuous thoracic aorta again noted. Electronically Signed by Nura Mcdaniels MD 06/09/2019 02:42 A
[2019-06-09 05:06] LABS: HEMATOCRIT 24.1 % (36.0-47.0); HEMOGLOBIN 7.9 g/dl (12.0-15.5); MEAN CORPUSCULAR HEMOGLOBIN 31.1 pg (27.0-33.0); MEAN CORPUSCULAR HGB CONC 32.8 g/dl (32.0-36.5); MEAN CORPUSCULAR VOLUME 94.9 fl (80.0-96.0); PLATELET COUNT, AUTOMATED 133 10^3/uL (150-450); RED BLOOD COUNT 2.54 10^6/uL (4.00-5.40); WHITE BLOOD COUNT 9.5 10^3/uL (4.0-10.0)
[2019-06-09 05:28] LABS: ALBUMIN 2.5 GM/DL (3.2-5.2); BILIRUBIN,TOTAL 0.4 MG/DL (0.2-1.0); CALCIUM LEVEL 8.2 MG/DL (8.8-10.2); CREATININE FOR GFR 1.42 MG/DL (0.55-1.30); POTASSIUM SERUM 3.9 MEQ/L (3.5-5.1); TOTAL PROTEIN 5.5 GM/DL (6.4-8.2)
[2019-06-09] MEDS: PANTOPRAZOLE 40MG INJ (PROTONIX) (C9113) IV SCH ×2 (08:35→20:39)
--- NOTE | 2019-06-09 08:43 | IPNPDOC ---
Subjective Date Seen The patient was seen on 06/09/19. Subjective Chief Complaint/HPI Fina was seen and examined this morning while lying upright in bed. She is complaining of a general weakness that she states has been present for the last few days. In addition, she has been having hot/cold intolerance, night sweats and chills. She states that she bruises easily. She's had 2 bowel movements since being admitted overnight. Her first bowel movement was described as dark, sticky, and loose. When asked specifically about the color, she said it was a dark red, almost black and that the toilet bowl water was the same color. Her second bowel movement today was also loose sticky and dark red, almost black- colored, but that the toilet bowl water was clear and not saturated with the color of stool like her earlier bowel movement. She is ambulating to the bathroom on her own power without accompanying lightheadedness, balance issues or significant dyspnea. General: Reports: Chills, Night Sweats Constitutional: Reports: Weakness (General); Denies: Fever ENT: Denies: Head Aches Pulmonary: Denies: Dyspnea, Cough Cardiovascular: Denies: Chest Pain, Palpitations, Orthopnea Gastrointestinal: Reports: Diarrhea (recent loose stool that was dark red/black in color), Melena (Loose, sticky dark red/black in color); Denies: Nausea, Vomiting, Abdominal Pain Genitourinary: Denies: Dysuria Hematologic: Reports: Bruising (States she has history of easy bruising) Neurological: Denies: Weakness, Numbness Objective Physical Examination General Exam: Positive: Alert, Cooperative ENT Exam: Positive: Atraumatic Neck Exam: Positive: Supple; Negative: thyromegaly Chest Exam: Positive: Clear to auscultation, Normal air movement; Negative: Rhonchi Heart Exam: Positive: Rate Normal, Normal S1, Normal S2; Negative: Gallops, Rubs Abdomen Exam: Positive: Normal bowel sounds, Soft; Negative: Tenderness Extremity Exam: Positive: Normal pulses (, 2+ radial and posterior tibial bilaterally); Negative: Tenderness Skin Exam: Positive: Nl turgor and temperature Neuro Exam: Positive: Strength at 5/5 X4 ext, Sensation Intact (to light touch intact upper extremity and lower extremity bilaterally) Psych Exam: Positive: Mental status NL, Oriented x 3 Assessment /Plan Assessment 1. GI Bleed with acute blood loss anemia. -Patient has a history of rectal carcinoma status post resection. Over the last couple days she has had melena specifically described as dark red black loose sticky bowel movements that have sometimes saturated toilet bowl water. -Patient's hemoglobin was initially 9.7, decreased to 7.9 this morning (06/09), and now has increased again on subsequent measurement to 8.7. There may be a dilutional component to our patient's anemia. -GI has been consulted (Dr. Garcia) and will see patient today. Patient will be made nothing by mouth after midnight and an EGD is scheduled for tomorrow. -After patient's hemoglobin improved to 8.7 from previous 7.9, her fluids were stopped. -Patient was switched to a clear diet this afternoon before switching at midnight, nothing by mouth. -Risks and benefits of possible blood transfusion were discussed with the patient in the event it is clinically warranted. Patient consented to blood transfusion if it is needed. -Continue with Protonix -Due to GI bleed, patient will not be on anticoagulation medication at this time, but she is on TEDs and SCDs -Continue to monitor patient's H&H as well as her overall strength. 2. Malignant neoplasm of rectum status post resection in OCT 2017 1 year follow up colonoscopy in november 2018 showed no recurrence of cancer. But did show diverticulosis and hemorrhoids. -We will await consult from Dr. Garcia for further recommendations 3. CKD, Stage III -Patient's creatinine and GFR improving with creatinine at baseline (1.4-1.7) -Continue to monitor with repeat metabolic profile 4. DM II, hypertension and Hyperlipidemia -c/w sliding scale insulin protocol. -Most recent fasting blood glucose decreased from 215 to 106. -continue ezetimibe, continue metoprolol with hold parameters. 5. Thoracic aorta aneurysm -Chest x-ray on this admission showed tortuous thoracic aorta aneurysm as repeat from previous imaging. 6. History of AAA repair 7. DVT prophylaxis -c/w TEDs and SCDs Plan/VTE VTE Prophylaxis Ordered?: Yes VS, I&O, 24H, Fishbone Vital Signs/I&O Vital Signs Date Time Temp Pulse Resp B/P (MAP) Pulse Ox O2 Delivery O2 Flow Rate FiO2 06/09/19 08:00 97.6 90 20 135/80 (98) 99 I&O- Last 24 Hours up to 6 AM 06/09/19 06:00 Intake Total 600 ml Output Total 0 ml Balance 600 ml Laboratory Data 24H LABS Laboratory Tests 2 06/08/19 20:46: Immature Granulocyte % (Auto) 0.7, White Blood Count 11.1H, Red Blood Count 3.13L, Hemoglobin 9.7L, Hematocrit 29.6L, Mean Corpuscular Volume 94.6, Mean Corpuscular Hemoglobin 31.0, Mean Corpuscular Hemoglobin Concent 32.8, Red Cell Distribution Width 14.1, Platelet Count 200, Neutrophils (%) (Auto) 65.5, Lymphocytes (%) (Auto) 23.5L, Monocytes (%) (Auto) 8.8H, Eosinophils (%) (Auto) 1.0, Basophils (%) (Auto) 0.5, Neutrophils # (Auto) 7.3, Lymphocytes # (Auto) 2.6, Monocytes # (Auto) 1.0H, Eosinophils # (Auto) 0.1, Basophils # (Auto) 0.1, Nucleated Red Blood Cells % (auto) 0.0, Prothrombin Time 14.7H, Prothromb Time International Ratio 1.18, Anion Gap 10, Glomerular Filtration Rate 29.8L, Calcium Level 9.1, Aspartate Amino Transf (AST/SGOT) 24, Alanine Aminotransferase (ALT/SGPT) 23, Alkaline Phosphatase 66, Total Bilirubin 0.7, Direct Bilirubin 0.2, Total Creatine Kinase 63, Creatine Kinase MB < 1.0, Creatine Kinase MB Relative Index 1.59, Troponin I < 0.02, Total Protein 6.0L, Albumin 2.9L, Albumin/Globulin Ratio 0.94L, Lipase 188 06/08/19 20:49: Bedside Glucose (Misc Panel) 213H 06/09/19 01:01: Bedside Glucose (Misc Panel) 228H 06/09/19 04:38: Nucleated Red Blood Cells % (auto) 0.0, Anion Gap 6L, Glomerular Filtration Rate 38.0L, Calcium Level 8.2L, Aspartate Amino Transf (AST/SGOT) 16, Alanine Aminotransferase (ALT/SGPT) 17, Alkaline Phosphatase 52, Total Bilirubin 0.4, Total Protein 5.5L, Albumin 2.5L, Albumin/Globulin Ratio 0.83L, Blood Urea Nitrogen 61H, Creatinine 1.42H, Sodium Level 145, Potassium Level 3.9, Chloride Level 114H, Carbon Dioxide Level 25, Magnesium Level 2.0 06/09/19 06:01: Bedside Glucose (Misc Panel) 82L CBC/BMP Laboratory Tests 06/08/19 20:46 Red Blood Count 3.13 L, Mean Corpuscular Volume 94.6, Mean Corpuscular Hemoglobin 31.0, Mean Corpuscular Hemoglobin Concent 32.8, Red Cell Distribution Width 14.1, Neutrophils (%) (Auto) 65.5, Lymphocytes (%) (Auto) 23.5 L, Monocytes (%) (Auto) 8.8 H, Eosinophils (%) (Auto) 1.0, Basophils (%) (Auto) 0.5, Neutrophils # (Auto) 7.3, Lymphocytes # (Auto) 2.6, Monocytes # (Auto) 1.0 H, Eosinophils # (Auto) 0.1, Basophils # (Auto) 0.1 06/09/19 04:38 Red Blood Count 2.54 L, Mean Corpuscular Volume 94.9, Mean Corpuscular Hemoglobin 31.1, Mean Corpuscular Hemoglobin Concent 32.8, Red Cell Distribution Width 14.2, Calcium Level 8.2 L, Aspartate Amino Transf (AST/SGOT) 16, Alanine Aminotransferase (ALT/SGPT) 17, Alkaline Phosphatase 52, Total Bilirubin 0.4, Total Protein 5.5 L, Albumin 2.5 L Attending Note Attending Note I have personally seen and examined the patient this am. I agree with the finding and the plan of care as documented above in the resident's note. JOSEY FUNK PGY-1 Jun 09, 2019 08:43 UMU PAGAN MD Jun 09, 2019 17:03
[2019-06-09 11:39] LABS: HEMATOCRIT 27.2 % (36.0-47.0); HEMOGLOBIN 8.7 g/dl (12.0-15.5); MEAN CORPUSCULAR HEMOGLOBIN 31.6 pg (27.0-33.0); MEAN CORPUSCULAR VOLUME 98.9 fl (80.0-96.0); PLATELET COUNT, AUTOMATED 143 10^3/uL (150-450); RED BLOOD COUNT 2.75 10^6/uL (4.00-5.40); WHITE BLOOD COUNT 10.7 10^3/uL (4.0-10.0)
[2019-06-09] MEDS: NS 1,000 ML IV SCH (12:11)
[2019-06-09] MEDS ORDERED: SLF 3 ML SYR IV PRN (13:00)
[2019-06-09] MEDS: SLF 3 ML SYR IV SCH ×2 (14:44→20:40)
--- NOTE | 2019-06-09 17:10 | REP ---
CT of the abdomen and pelvis without IV or bowel contrast: Comparison is 09/02/2017. The patient has a known abdominal aortic aneurysm and colon carcinoma. The known suprarenal abdominal aortic aneurysm is again identified today maximally measuring 8.3 cm transversely and spanning a craniocaudad length of 14 cm. Previously this aneurysm may. 6.6 cm transversely and spanning a craniocaudad length of 12 cm. No periaortic hematoma is identified. The visualized lung flaherty demonstrate chronic parenchymal scarring in the left lower lobe. There are a few small hepatic hypodensities in the medial segment of the left lobe, unchanged from the prior study that cannot be further characterized by CT at this time. There is a large gallbladder calculus measuring up to 2.9 cm diameter. This measured 2.4 cm previously. The gallbladder is otherwise unremarkable. The unenhanced pancreas, spleen, adrenals are unremarkable. There is cortical scarring of the right kidney. There is a 2 mm nonobstructive right renal lower pole calculus. This is unchanged. There is marked atrophy of the left kidney, unchanged. There is no bowel distension or obstruction. There are too fat-containing midline ventral hernias as previously. Pelvis: The appendix is unremarkable. There is descending colon and sigmoid colon diverticulosis without diverticulitis. This is unchanged. There is no ascites or adenopathy. The uterus and adnexa are unremarkable. The bladder is incompletely distended and cannot be further evaluated. Impression: Large suprarenal abdominal aortic aneurysm as described that has increased in size. No periaortic hematoma. Cholelithiasis, unchanged. Two small hepatic hypodensities in the left lobe, unchanged, cannot be further characterized. Marked left renal atrophy. Right renal cortical scarring. Diverticulosis without diverticulitis. No ascites, adenopathy or mass. Electronically Signed by Yuri Jennings MD 06/09/2019 05:01 P
[2019-06-09 19:16] LABS: HEMATOCRIT 25.5 % (36.0-47.0); HEMOGLOBIN 8.4 g/dl (12.0-15.5); MEAN CORPUSCULAR HEMOGLOBIN 32.1 pg (27.0-33.0); MEAN CORPUSCULAR HGB CONC 32.9 g/dl (32.0-36.5); MEAN CORPUSCULAR VOLUME 97.3 fl (80.0-96.0); PLATELET COUNT, AUTOMATED 137 10^3/uL (150-450); RED BLOOD COUNT 2.62 10^6/uL (4.00-5.40); WHITE BLOOD COUNT 10.7 10^3/uL (4.0-10.0)
[2019-06-09] MEDS: METOPROLOL SUCC *XL* 25MG TAB (TopROL *XL*) PO SCH (20:39)
[2019-06-10 00:08] LABS: HEMATOCRIT 23.9 % (36.0-47.0); MEAN CORPUSCULAR HEMOGLOBIN 32.1 pg (27.0-33.0); MEAN CORPUSCULAR HGB CONC 33.5 g/dl (32.0-36.5); PLATELET COUNT, AUTOMATED 113 10^3/uL (150-450); RED BLOOD COUNT 2.49 10^6/uL (4.00-5.40); WHITE BLOOD COUNT 10.8 10^3/uL (4.0-10.0)
--- NOTE | 2019-06-10 00:13 | ECGEPIP ---
[facility] - ED Test Date: 2019-06-08 Pat Name: MIRA JOSEPH Department: Room: [place] [address] Gender: Female Insurance Advisor: magali : 1940 Requested By: DIMITRY Ramírez Order Number: [id number] Reading MD: Rowdy Knox Measurements Intervals [place] Rate: 83 P: 8 [place]: 141 QRS: 10 QRSD: 94 T: 99 QT: 358 QTc: 421 Interpretive Statements SINUS RHYTHM NONSPECIFIC ST & T-WAVE ABNORMALITY Similar to tracing done 09-02-17 Electronically Signed on 06-10-2019 0:13:10 EDT by Rowdy Knox
[2019-06-10 04:00] VITALS: BP 120/71
[2019-06-10 05:48] LABS: HEMATOCRIT 23.8 % (36.0-47.0); HEMOGLOBIN 7.9 g/dl (12.0-15.5); MEAN CORPUSCULAR HEMOGLOBIN 31.2 pg (27.0-33.0); MEAN CORPUSCULAR HGB CONC 33.2 g/dl (32.0-36.5); MEAN CORPUSCULAR VOLUME 94.1 fl (80.0-96.0); PLATELET COUNT, AUTOMATED 129 10^3/uL (150-450); RED BLOOD COUNT 2.53 10^6/uL (4.00-5.40); WHITE BLOOD COUNT 9.4 10^3/uL (4.0-10.0)
[2019-06-10] MEDS: HumaLOG INSULIN (NovoLOG) PER UNIT SC SCH ×3 (06:00→18:00)
[2019-06-10 06:05] LABS: CALCIUM LEVEL 8.9 MG/DL (8.8-10.2); CREATININE FOR GFR 1.3 MG/DL (0.55-1.30); GLOMERULAR FILTRATION RATE 42.1 (>39); POTASSIUM SERUM 3.5 MEQ/L (3.5-5.1)
[2019-06-10] MEDS: SLF 3 ML SYR IV SCH ×3 (06:07→20:39)
[2019-06-10 08:00] VITALS: BP 132/84
[2019-06-10] MEDS: PANTOPRAZOLE 40MG INJ (PROTONIX) (C9113) IV SCH ×2 (08:58→20:39)
[2019-06-10] MEDS: METOPROLOL SUCC *XL* 25MG TAB (TopROL *XL*) PO SCH ×3 (08:58→20:38)
[2019-06-10 12:00] VITALS: BP 126/65
[2019-06-10 12:13] LABS: HEMATOCRIT 23.4 % (36.0-47.0); HEMOGLOBIN 7.7 g/dl (12.0-15.5); MEAN CORPUSCULAR HEMOGLOBIN 31.6 pg (27.0-33.0); MEAN CORPUSCULAR HGB CONC 32.9 g/dl (32.0-36.5); MEAN CORPUSCULAR VOLUME 95.9 fl (80.0-96.0); PLATELET COUNT, AUTOMATED 121 10^3/uL (150-450); RED BLOOD COUNT 2.44 10^6/uL (4.00-5.40); WHITE BLOOD COUNT 8.2 10^3/uL (4.0-10.0)
[2019-06-10] MEDS ORDERED: EPINEPHrine 1MG/10ML SYRINGE 1.5IN As Ordered ONE (15:09)
[2019-06-10] MEDS ORDERED: LIDOCAINE 2% INJ 100 MG/5 ML SDV (FOR ANES.) As Ordered ONE (15:09)
[2019-06-10] MEDS ORDERED: PROPOFOL 200 MG/20 ML VIAL As Ordered ONE (15:09)
--- NOTE | 2019-06-10 15:33 | ROOR ---
Patient Name: Fina Kumar Procedure Date: 06/10/2019 2:50 PM Date of : 1940 Age: 78 Room: [facility] Gender: Female Note Status: Director Emergency Override Procedure: Upper GI endoscopy + Hemoclips + Injection Therapy Indications: Hematemesis, Melena Providers: Bean Garcia MD Referring MD: Gamaliel PAGAN MD Requesting Provider: Medicines: Monitored Anesthesia Care Complications: No immediate complications. Procedure: Pre-Anesthesia Assessment: - The heart rate, respiratory rate, oxygen saturations, blood pressure, adequacy of pulmonary ventilation, and response to care were monitored throughout the procedure. The Endoscope was introduced through the mouth, and advanced to the second part of duodenum. The upper GI endoscopy was accomplished without difficulty. The patient tolerated the procedure well. Findings: The Z-line was irregular and was found 38 cm from the incisors. One non-bleeding cratered gastric ulcer with pigmented material was found in the gastric fundus. Area was successfully injected with 2 mL of a 1:10,000 solution of epinephrine for hemostasis. For hemostasis, three hemostatic clips were successfully placed (MR conditional). There was no bleeding at the end of the procedure. The exam was otherwise without abnormality. The exam of the duodenum was otherwise normal. Impression: - Z-line irregular, 38 cm from the incisors. - Non-bleeding gastric ulcer with pigmented material. Injected. Clips (MR conditional) were placed. - The examination was otherwise normal. - No specimens collected. - The examination was otherwise normal. Recommendation: - Patient has a contact number available for emergencies. The signs and symptoms of potential delayed complications were discussed with the patient. Return to normal activities tomorrow. Written discharge instructions were provided to the patient. - Clear liquid diet. - [facility] care. - Continue present medications. - Return to referring physician. - The findings and recommendations were discussed with the patient's family. Bean Garcia MD Bean Garcia MD 06/10/2019 3:33:02 PM Electronically signed by Bean Garcia MD Number of Addenda: 0 Note Initiated On: 06/10/2019 2:50 PM Estimated Blood Loss: Estimated blood loss: none.
[2019-06-10 16:30] VITALS: BP 138/74
--- NOTE | 2019-06-10 16:43 | IPNPDOC ---
Subjective Date Seen The patient was seen on 06/10/19. Subjective Chief Complaint/HPI Fina was seen and examined this morning while lying in bed. There were no adverse events overnight. She denies any pain. EGD will be performed today. Patient was made nothing by mouth at midnight last night General: Denies: Chills Constitutional: Denies: Fever ENT: Denies: Head Aches Pulmonary: Denies: Dyspnea, Cough Cardiovascular: Denies: Chest Pain, Palpitations Gastrointestinal: Denies: Nausea, Vomiting Genitourinary: Denies: Dysuria Musculoskeletal: Denies: Joint Pain, Muscle Pain Neurological: Denies: Weakness, Numbness Objective Physical Examination General Exam: Positive: Alert, Cooperative ENT Exam: Positive: Atraumatic Neck Exam: Positive: Supple; Negative: thyromegaly Chest Exam: Positive: Clear to auscultation, Normal air movement; Negative: Rhonchi Heart Exam: Positive: Rate Normal, Normal S1, Normal S2; Negative: Gallops, Rubs Abdomen Exam: Positive: Normal bowel sounds, Soft; Negative: Tenderness Extremity Exam: Positive: Normal pulses (, 2+ radial and posterior tibial bilaterally); Negative: Tenderness Skin Exam: Positive: Nl turgor and temperature Neuro Exam: Positive: Strength at 5/5 X4 ext, Sensation Intact (to light touch intact upper extremity and lower extremity bilaterally) Psych Exam: Positive: Mental status NL, Oriented x 3 Assessment /Plan Assessment 1. GI Bleed with acute blood loss anemia. -Patient has a history of rectal carcinoma s/p resection. Over the last couple days she has had melena specifically described as dark red black loose sticky bowel movements that have sometimes saturated toilet bowl water. -GI has been consulted. Patient was scheduled for EGD today (06/10). Patient can resume clear diet now that she is post-EGD -Continue with IV fluids and Protonix -Risks and benefits of possible blood transfusion were discussed with the patient in the event it is clinically warranted. Patient consented to blood transfusion if it is needed. -Due to GI bleed, patient will not be on anticoagulation medication at this time, but she is on TEDs and SCDs -Patient's hemoglobin this morning measured 7.9. We will continue to monitor patient's H&H as well as her overall strength. 2. Malignant neoplasm of rectum status post resection in Oct 2017 1 year follow up colonoscopy in November 2018 showed no recurrence of cancer. But did show diverticulosis and hemorrhoids. -We will await consult from Dr. Garcia for further recommendations 3. CKD, Stage III -Patient's creatinine and GFR improving with creatinine at baseline (1.4-1.7). -UA and urine culture were ordered this morning (06/10) -On 06/09. CT abdomen and pelvis showed left renal atrophy and right renal cortical scarring -Continue to monitor with repeat metabolic profile -Continue with metoprolol 4. DM II, hypertension and Hyperlipidemia -c/w sliding scale insulin protocol and serum glucose levels. -continue ezetimibe, continue metoprolol with hold parameters. 5. Suprarenal abdominal aortic aneurysm -Chest x-ray on this admission showed tortuous thoracic aorta aneurysm; CT abdomen/pelvis showed increase in size of aneurysm from previous imaging. -A nursing order request as been made to obtain any or all records pertaining to the workup and measures taken to address this active aneurysm -Continue with metoprolol for pressure control 6. History of AAA repair 7. DVT prophylaxis -c/w TEDs and SCDs I saw and evaluated the patient. I agree with the findings and plan of care as documented in the above note Discussed patient's AAA she is status post repair, she knows she has a thoracic aortic aneurysm which is growing she did see Dr. Kimble of vascular surgery regarding this previously she was told she was not a surgical candidate and she would not survive an operative procedure. She understands it is a taking time bomb that could kill or any moment she tells me she is a almost 79 years old and has lived a good life and that it is a painless way to which she is comfortable with. She is not interested in any further workup or evaluation regarding it. A lengthy conversation regarding this Plan/VTE VTE Prophylaxis Ordered?: Yes VS, I&O, 24H, Fishbone Vital Signs/I&O Vital Signs Date Time Temp Pulse Resp B/P (MAP) Pulse Ox O2 Delivery O2 Flow Rate FiO2 06/10/19 08:58 83 132/84 06/10/19 08:00 98.9 18 100 I&O- Last 24 Hours up to 6 AM 06/10/19 06:00 Intake Total 1455 ml Output Total 2325 ml Balance -870 ml Laboratory Data 24H LABS Laboratory Tests 2 06/09/19 11:23: Nucleated Red Blood Cells % (auto) 0.0 06/09/19 11:58: Bedside Glucose (Misc Panel) 126H 06/09/19 17:20: Bedside Glucose (Misc Panel) 102 06/09/19 18:20: Nucleated Red Blood Cells % (auto) 0.0 06/09/19 23:42: Bedside Glucose (Misc Panel) 97 06/09/19 23:58: Nucleated Red Blood Cells % (auto) 0.0 06/10/19 05:19: Nucleated Red Blood Cells % (auto) 0.0, Anion Gap 6L, Glomerular Filtration Rate 42.1, Blood Urea Nitrogen 42H, Creatinine 1.30, Sodium Level 143, Potassium Level 3.5, Chloride Level 111H, Carbon Dioxide Level 26, Calcium Level 8.9 06/10/19 08:33: Urine Color YELLOW, Urine Appearance HAZY, Urine pH 6.0, Urine Specific [place] 1.011, Urine Protein NEGATIVE, Urine Glucose (UA) NEGATIVE, Urine Ketones NEGATIVE, Urine Blood 1+H, Urine Nitrite NEGATIVE, Urine Bilirubin NEGATIVE, Urine Urobilinogen 0.2, Urine Leukocyte Esterase TRACEH, Urine WBC (Auto) 4H, Urine RBC (Auto) 0, Urine Hyaline Casts (Auto) 0, Urine Bacteria (Auto) NEGATIVE, Urine Squamous Epithelial Cells 3, Urine Sperm (Auto) CBC/BMP Laboratory Tests 06/09/19 11:23 Red Blood Count 2.75 L, Mean Corpuscular Volume 98.9 H, Mean Corpuscular Hemoglobin 31.6, Mean Corpuscular Hemoglobin Concent 32.0, Red Cell Distribution Width 14.5 06/09/19 18:20 Red Blood Count 2.62 L, Mean Corpuscular Volume 97.3 H, Mean Corpuscular Hemoglobin 32.1, Mean Corpuscular Hemoglobin Concent 32.9, Red Cell Distribution Width 14.6 H 06/09/19 23:58 Red Blood Count 2.49 L, Mean Corpuscular Volume 96.0, Mean Corpuscular Hemoglobin 32.1, Mean Corpuscular Hemoglobin Concent 33.5, Red Cell Distribution Width 14.6 H 06/10/19 05:19 Red Blood Count 2.53 L, Mean Corpuscular Volume 94.1, Mean Corpuscular Hemoglobin 31.2, Mean Corpuscular Hemoglobin Concent 33.2, Red Cell Distribution Width 14.7 H, Calcium Level 8.9 Microbiology Microbiology 06/09/19 Stool Occult Blood (CORRY) - Final, Complete 06/10/19 Urine Culture, Received Pending JOSEY FUNK PGY-1 Jun 10, 2019 11:08 JACKLYN CORDERO MD Jun 11, 2019 18:26
--- NOTE | 2019-06-10 16:58 | CR ---
DATE OF CONSULTATION: 06/09/2019 This is a 78-year-old white female, known to me previously, with a past medical history of rectal carcinoma status post resection, hypertension, diabetes mellitus, vitamin D deficiency, and constipation. The patient relates sudden onset of fatigue and feeling diaphoretic 24 hours prior to admission, when she went to her neighbor's to get something to eat, she felt possibly due to hypoglycemia, and she immediately after eating some fruit started having vomiting. She apparently had one bout of coffee-ground with blood emesis and melena. She has had no complaints abdominal pain, weight loss, fevers, night sweats, or shaking chills. She only takes aspirin 325 daily. She is on glipizide, metoprolol, Januvia, vitamin B complex, and ezetimibe. ALLERGIES: CEPHALEXIN, ATORVASTATIN and, ROSIGLITAZONE. PAST MEDICAL HISTORY: Positive for: 1. Rectal carcinoma with resection diagnosed in 2017. 2. Status post abdominal aortic aneurysm (AAA) repair 6 years ago. 3. She apparently has a known thoracic aortic aneurysm. 4. Hypertension. 5. Diabetes mellitus. PAST SURGICAL HISTORY: Noncontributory to the above problem. SOCIAL HISTORY: Cigarettes, alcohol, drugs were negative. An 11-point review of systems is noncontributory to the above problem. GENERAL: A well-developed, well-nourished white female in no obvious acute distress. Appears stated age. CHEST: Clear to auscultation. CARDIOVASCULAR: Showed a regular rhythm. No murmurs or gallops. Normal physiological split, S1, S2. ABDOMEN: Soft, nontender. No masses, guarding, rebound, hepatosplenomegaly. Bowel sounds positive. LABORATORY STUDIES: On admission showed a white count 11,000, hemoglobin and hematocrit of 9.7 and 29.6. The patient's count today was 8.4 and 25.5. The patient has not been given any blood so far on this admission. Abdominal CT was also obtained on June 09, which showed cholelithiasis, stable in chains, diverticulosis. No ascites or adenopathy. No abdominal masses seen. She has a left suprarenal abdominal aortic aneurysm repair. The patient's liver functions on admission were normal. The troponin was negative. Lipase 188. Renal function was slightly elevated at 1.75. Now it is 1.42 after hydration. ANALYSIS: Hematemesis, melena of unknown etiology, possibly related to taking aspirin and 325 daily. Our plan will be to set the patient up for an upper endoscopy. She has had a colonoscopy in November 2018, in which several polyps were removed. No obvious tumors or masses seen at that time . PLAN: Upper endoscopy to be scheduled for evaluation of a possible source of bleeding. Could be possibly related to the aspirin.
[2019-06-10 18:20] LABS: HEMATOCRIT 24.6 % (36.0-47.0); MEAN CORPUSCULAR HEMOGLOBIN 31.9 pg (27.0-33.0); MEAN CORPUSCULAR HGB CONC 32.5 g/dl (32.0-36.5); PLATELET COUNT, AUTOMATED 127 10^3/uL (150-450); RED BLOOD COUNT 2.51 10^6/uL (4.00-5.40); WHITE BLOOD COUNT 9.7 10^3/uL (4.0-10.0)
[2019-06-10 20:00] VITALS: BP 114/76
[2019-06-11] VITALS: BP 111/69
[2019-06-11 00:29] LABS: HEMATOCRIT 23.8 % (36.0-47.0); HEMOGLOBIN 7.7 g/dl (12.0-15.5); MEAN CORPUSCULAR HEMOGLOBIN 31.6 pg (27.0-33.0); MEAN CORPUSCULAR HGB CONC 32.4 g/dl (32.0-36.5); MEAN CORPUSCULAR VOLUME 97.5 fl (80.0-96.0); PLATELET COUNT, AUTOMATED 138 10^3/uL (150-450); RED BLOOD COUNT 2.44 10^6/uL (4.00-5.40); WHITE BLOOD COUNT 9.1 10^3/uL (4.0-10.0)
[2019-06-11 04:00] VITALS: BP 127/83
[2019-06-11 05:29] LABS: HEMATOCRIT 24.9 % (36.0-47.0); HEMOGLOBIN 8.2 g/dl (12.0-15.5); MEAN CORPUSCULAR HEMOGLOBIN 31.4 pg (27.0-33.0); MEAN CORPUSCULAR HGB CONC 32.9 g/dl (32.0-36.5); MEAN CORPUSCULAR VOLUME 95.4 fl (80.0-96.0); PLATELET COUNT, AUTOMATED 134 10^3/uL (150-450); RED BLOOD COUNT 2.61 10^6/uL (4.00-5.40); WHITE BLOOD COUNT 8.2 10^3/uL (4.0-10.0)
[2019-06-11] MEDS: SLF 3 ML SYR IV SCH (05:36)
[2019-06-11 05:56] LABS: CREATININE FOR GFR 1.34 MG/DL (0.55-1.30); GLOMERULAR FILTRATION RATE 40.6 (>39); POTASSIUM SERUM 3.4 MEQ/L (3.5-5.1)
[2019-06-11] MEDS: HumaLOG INSULIN (NovoLOG) PER UNIT SC SCH ×3 (06:00→12:35)
[2019-06-11] MEDS ORDERED: POTASSIUM CHLORIDE 10 MEQ SR TABLET PO ONE (09:00)
[2019-06-11] MEDS: PANTOPRAZOLE 40MG INJ (PROTONIX) (C9113) IV SCH (09:26)
[2019-06-11 09:27] VITALS: BP 127/83
[2019-06-11] MEDS: METOPROLOL SUCC *XL* 25MG TAB (TopROL *XL*) PO SCH (09:27)
[2019-06-11] MEDS ORDERED: CARA1TAB6 PO (10:13)
[2019-06-11] MEDS ORDERED: PROT1TAB2 PO (10:13)
[2019-06-11 11:55] VITALS: BP 163/86
[2019-06-11 11:56] VITALS: BP 159/88
[2019-06-11 16:00] VITALS: BP 123/74
--- NOTE | 2019-06-11 20:06 | DS.PDOC ---
Discharge Summary General Date of Admission Jun 08, 2019 at 23:18 Date of Discharge 06/11/2019 Attending Physician: JACKLYN CORDERO MD Specialist/Consultants Involve: Bean Garcia Discharge Summary PROCEDURES PERFORMED DURING STAY: EGD, 06/10 ADMITTING DIAGNOSES: 1. Gastrointestinal bleed. 2. Malignant neoplasm of rectum DISCHARGE DIAGNOSES: 1. Gastrointestinal bleed. 2. Rectal carcinoma status post resection (diagnosed in 2016). 3. Left suprarenal abdominal aortic aneurysm (AAA) status post repair 6 years ago. 4. Existing thoracic aortic aneurysm 5. Diabetes mellitus 6. Hypertension. 7. Chronic kidney disease, stage III 8. Hyperlipidemia COMPLICATIONS/CHIEF COMPLAINT: Gi Bleed. HISTORY OF PRESENT ILLNESS: [place] is a 78-year-old female with pertinent past medical history of rectal carcinoma status post resection (2016), abdominal aortic aneurysm status post repair (2012) hypertension, active thoracic aortic aneurysm, diabetes mellitus, and hyperlipidemia, who presented to the emergency department late on the evening of 06/08 with a chief complaint of feeling fatigued and tired over the last few days. She reported feeling nauseated and having hematemesis, which was followed by coffee ground diarrhea. She described her stool as sticky, dark red, almost black, and the toilet bowl water was saturated with this discoloration. Per [place], her most recent colonoscopy was in November 2018 at which time several polyps were removed. Her rectal carcinoma resection was done by Dr. Alvares, and she has followed with Dr. Garcia for her continued GI care. HOSPITAL COURSE: Virginia was admitted to the PCU for close monitoring under the care of the hospitalist team and placed on telemetry. She was made NPO, given Protonix, IV fluids, one-time dose of Zofran, and orders were made for serial H&H measurements. She had a positive stool occult blood result. Urinalysis showed 1+ blood, WBC of 4, and trace leukocyte esterase. Urine culture results came back as likely contaminated. When her hemoglobin improved to 8.7 from 7.9, IV fluids were stopped. The hospitalist team discussed with her the risks and benefits of a blood transfusion in the event is warranted. [place] gave her consent for blood transfusion if it was needed. She was not placed on any anticoagulation due to her GI bleed, she did have DVT prophylaxis through sequentials and teds. Initial chest x-ray on night of presentation showed no acute cardiopulmonary process and a abdomen pelvis CT the next day (06/09) showed a repaired suprarenal aortic aneurysm as well as a tortuous thoracic aortic aneurysm that had increased in size from previous imaging. Nursing orders were placed for more information regarding care she previously received for this active aneurysm. Home metoprolol was continued for history of hypertension and active aneurysm. She was on insulin sliding scale and ezetimibe for her diabetes mellitus and hyperlipidemia, respectively. GI was consulted and saw the patient. GI stated she had hematemesis and melena of unknown etiology and scheduled her for a EGD on 06/10. [place] states that post EGD. She was informed that a gastric ulcer was clipped during the procedure. She was put back on clear liquid diet, post EGD. Her overall strength steadily improved during her inpatient stay and she began to tolerate both liquid and solid food without any issues towards the time of discharge. The hospitalist team and a lengthy conversation with [place] regarding her active thoracic aortic aneurysm that had grown in size from previous imaging. She is aware of it and knows that it is something that could kill her. She seen Dr. Kimble of vascular surgery in the past and reports that he has informed her that she is not a surgical candidate and that she would most likely not survive a corrective procedure. She says that since she is nearly 79 years old, she views this as a comfortable way to . She is not interested in further workup or evaluation of the current aneurysm. DISCHARGE MEDICATIONS: Please see below. ALLERGIES: Please see below. PHYSICAL EXAMINATION ON DISCHARGE: VITAL SIGNS: Please see below. General Exam: Positive: Alert, Cooperative ENT Exam: Positive: Atraumatic Neck Exam: Positive: Supple; Negative: thyromegaly Chest Exam: Positive: Clear to auscultation, Normal air movement; Negative: Rhonchi Heart Exam: Positive: Rate Normal, Normal S1, Normal S2; Negative: Gallops, Rubs Abdomen Exam: Positive: Normal bowel sounds, Soft; Negative: Tenderness Extremity Exam: Positive: Normal pulses (, 2+ radial and posterior tibial bilaterally); Negative: Tenderness Skin Exam: Positive: Nl turgor and temperature Neuro Exam: Positive: Strength at 5/5 X4 ext, Sensation Intact (to light touch intact upper extremity and lower extremity bilaterally) Psych Exam: Positive: Mental status NL, Oriented x 3 LABORATORY DATA: Please see below. IMAGING: Chest x-ray (1 view), 06/08 showed no acute cardiopulmonary process appreciated. Tortuous thoracic aorta again noted. Abdomen pelvis CT, 06/09 showed a large suprarenal abdominal aortic aneurysm as described that has increased in size. No periaortic hematoma. Cholelithiasis, unchanged. Two small hepatic hypodensities in the left lobe, unchanged, cannot be further characterized. Marked left renal atrophy. Right renal cortical scarring. Diverticulosis without diverticulitis. No ascites, adenopathy or mass. PROGNOSIS: Fair ACTIVITY: As tolerated DIET: As tolerated DISPOSITION: Home, Self-Care. DISCHARGE INSTRUCTIONS & ITEMS TO FOLLOWUP ON ON OUTPATIENT: 1. Follow-up with primary care physician/provider the next 7-10 days. 2. Follow-up with GI as needed on outpatient basis for continued gastrointestinal care post EGD and for history of/continued care for rectal carcinoma. 3. If symptoms that caused this admission showed return or worsen, or if the patient should experience an acute medical emergency of any kind, patient is instructed to return to the emergency department. DISCHARGE CONDITION: Stable I saw and evaluated the patient. I agree with the findings and plan of care as documented in the documenters note. I spent 45 minutes coordinating this patient's discharge. Vital Signs/I&Os Vital Signs Date Time Temp Pulse Resp B/P (MAP) Pulse Ox O2 Delivery O2 Flow Rate FiO2 06/11/19 16:00 97.0 85 18 123/74 (90) 95 I&O- Last 24 Hours up to 6 AM 06/11/19 06:00 Intake Total 930 ml Output Total 850 ml Balance 80 ml Laboratory Data Labs 24H Laboratory Tests 2 06/10/19 23:31: Bedside Glucose (Misc Panel) 97 06/10/19 23:58: Nucleated Red Blood Cells % (auto) 0.0 06/11/19 05:05: Nucleated Red Blood Cells % (auto) 0.0, Anion Gap 8, Glomerular Filtration Rate 40.6, Blood Urea Nitrogen 28H, Creatinine 1.34H, Sodium Level 141, Potassium Level 3.4L, Chloride Level 109H, Carbon Dioxide Level 24, Calcium Level 9.0 06/11/19 11:25: Bedside Glucose (Misc Panel) 162H 06/11/19 17:18: Bedside Glucose (Misc Panel) 102 CBC/BMP Laboratory Tests 06/10/19 23:58 Red Blood Count 2.44 L, Mean Corpuscular Volume 97.5 H, Mean Corpuscular Hemoglobin 31.6, Mean Corpuscular Hemoglobin Concent 32.4, Red Cell Distribution Width 15.0 H 06/11/19 05:05 Red Blood Count 2.61 L, Mean Corpuscular Volume 95.4, Mean Corpuscular Hemoglobin 31.4, Mean Corpuscular Hemoglobin Concent 32.9, Red Cell Distribution Width 14.6 H, Calcium Level 9.0 FSBS Laboratory Tests Test 06/10/19 23:31 06/11/19 11:25 06/11/19 17:18 Range/Units Bedside Glucose (Misc Panel) 97 162 102 83-110 MG/DL Microbiology Microbiology 06/09/19 Stool Occult Blood (CORRY) - Final, Complete 06/10/19 Urine Culture - Final, Complete Discharge Medications Scheduled Cholecalciferol (Vitamin D3) (Vitamin D3) 1,000 Unit Tablet, 1,000 UNIT PO DAILY, (Reported) Ezetimibe (Ezetimibe) 10 Mg Tab, 10 MG PO QHS, (Reported) Glipizide (Glipizide ER) 5 Mg Tab, 5 MG PO DAILY, (Reported) Metoprolol Succinate (Metoprolol Succinate) 25 Mg Tab, 25 MG PO BID, (Reported) Pantoprazole Sodium (Protonix) 40 Mg Tablet.dr, 40 MG PO BID Sitagliptin Phosphate (Januvia) 25 Mg Tab, 25 MG PO DAILY, (Reported) Sucralfate (Carafate) 1 Gm Tablet, 1 TAB PO BID Vitamin B Complex (Vitamin B Complex) 1 Each Tablet, 1 TAB PO DAILY, (Reported) Allergies Coded Allergies: cephalexin (Verified Allergy, Severe, tongue swelling, 02/19/19) atorvastatin (Verified Allergy, Intermediate, swelling, muscle aches, 02/19/19) rosiglitazone (Verified Allergy, Intermediate, swelling, 02/19/19) JOSEY FUNK PGY-1 Jun 11, 2019 20:06 JACKLYN CORDERO MD Jun 23, 2019 17:00
== END 2019-06-11 18:00 | disposition home or self-care (01) | DRG 384 ==
LOC: M ED 20:39 → M ED INP 23:18 → M PCU 06-09 00:53
PROVIDERS: ADMIT Internal Medicine; ATTEND Internal Medicine
PROC: 0W3P8ZZ Control Bleeding in Gastrointestinal Tract, Via Natural or Artificial Opening Endoscopic (ICD-10-PCS; principal; 2019-06-10 07:30)
DX: K25.9 Gastric ulcer, unspecified as acute or chronic, without hemorrhage or perforation (principal); D62 Acute posthemorrhagic anemia; K92.1 Melena; Z79.899 Other long term (current) drug therapy; E78.5 Hyperlipidemia, unspecified; N18.3 Chronic kidney disease, stage 3 (moderate); I12.9 Hypertensive chronic kidney disease with stage 1 through stage 4 chronic kidney disease, or unspecified chronic kidney disease; E11.9 Type 2 diabetes mellitus without complications; I71.2 Thoracic aortic aneurysm, without rupture; Z85.048 Personal history of other malignant neoplasm of rectum, rectosigmoid junction, and anus; Z88.8 Allergy status to other drugs, medicaments and biological substances; E55.9 Vitamin D deficiency, unspecified; K92.0 Hematemesis

== ENCOUNTER → 2019-06-22 | Outpatient (CLI) | payer MEDICARE, MEDICAID ==
[~2019-06-22] MED LIST changes: +B COTAB3 PO; +CARA1TAB6 PO; +D31000TA PO; +PROT1TAB2 PO
[2019-06-22 20:19] LABS: BASO % 0.5 % (0.0-1.0); EOS # 0.1 10^3/uL (0.0-0.50); EOS % 1.6 % (0.0-3.0); HEMATOCRIT 28.1 % (36.0-47.0); HEMOGLOBIN 8.9 g/dl (12.0-15.5); LYMPH # 1.6 10^3/uL (1.5-4.5); LYMPH % 21.1 % (24.0-44.0); MEAN CORPUSCULAR HEMOGLOBIN 30.7 pg (27.0-33.0); MEAN CORPUSCULAR HGB CONC 31.7 g/dl (32.0-36.5); MEAN CORPUSCULAR VOLUME 96.9 fl (80.0-96.0); MONO # 0.7 10^3/uL (0.0-0.8); MONO % 8.7 % (0.0-5.0); NEUTROPHILS # 5.3 10^3/uL (1.8-7.7); NEUTROPHILS % 67.8 % (36.0-66.0); PLATELET COUNT, AUTOMATED 279 10^3/uL (150-450); WHITE BLOOD COUNT 7.7 10^3/uL (4.0-10.0)
[2019-06-22 20:23] LABS: BLOOD UREA NITROGEN 26 MG/DL (7-18); CARBON DIOXIDE LEVEL 26 MEQ/L (21-32); CHLORIDE LEVEL 109 MEQ/L (98-107); CREATININE FOR GFR 1.64 MG/DL (0.55-1.30); GLOMERULAR FILTRATION RATE 32.2 (>39); GLUCOSE, FASTING 86 MG/DL (70-100); SODIUM LEVEL 142 MEQ/L (136-145)
[2019-06-23 12:59] LABS: H PYLORI QUALITATIVE IgG NEGATIVE (NEGATIVE)
== END ==
LOC: M WUC 16:36
PROVIDERS: ATTEND Family Medicine
DX: K92.2 Gastrointestinal hemorrhage, unspecified (principal); E87.6 Hypokalemia

== ENCOUNTER → 2019-08-18 | Outpatient (REF) | payer MEDICARE, MEDICAID ==
[2019-08-18 19:26] LABS: PERCENT SATURATION 5.7 % (13.2-45.0)
== END ==
LOC: M LAB REF 17:09
PROVIDERS: ATTEND Nurse Practitioner Family
DX: D50.9 Iron deficiency anemia, unspecified (principal)

== ENCOUNTER 2019-08-25 09:16 | Outpatient (CLI) | payer MEDICARE, MEDICAID ==
[2019-08-25] VITALS (7 sets, daily range): BP systolic 137–177; BP diastolic 80–96
[~2019-08-25] VITALS: Ht 154.9 cm; Wt 62.1 kg
[2019-08-25] MEDS ORDERED: IRON SUCROSE 25 MG in NS 50 ML IV ONE ×2 (10:00→11:00)
[2019-08-25] MEDS ORDERED: IRON SUCROSE 475 MG in NS 250 ML IV ONE ×2 (10:00→12:00)
== END 2019-08-25 14:30 | disposition home or self-care (01) ==
LOC: M INFU 09:16
PROVIDERS: ATTEND Internal Medicine Nephrology
DX: D50.9 Iron deficiency anemia, unspecified (principal); Z88.8 Allergy status to other drugs, medicaments and biological substances; Z88.1 Allergy status to other antibiotic agents; Z79.899 Other long term (current) drug therapy
CPT/HCPCS: 96365; 96366; J1756

== ENCOUNTER → 2019-09-14 | Outpatient (REF) | payer MEDICARE, MEDICAID ==
[2019-09-14 18:51] LABS: FREE T4 1.18 NG/DL (0.76-1.46); THYROID STIMULATING HORMONE 1.94 uIU/ML (0.358-3.740)
[2019-09-14 19:03] LABS: BASO # 0.1 10^3/uL (0.0-0.2); BASO % 0.7 % (0.0-1.0); EOS # 0.1 10^3/uL (0.0-0.5); EOS % 1.7 % (0.0-3.0); HEMATOCRIT 38.2 % (36.0-47.0); HEMOGLOBIN 11.5 g/dl (12.0-15.5); LYMPH % 12.5 % (24.0-44.0); MEAN CORPUSCULAR HEMOGLOBIN 25.8 pg (27.0-33.0); MEAN CORPUSCULAR HGB CONC 30.1 g/dl (32.0-36.5); MEAN CORPUSCULAR VOLUME 85.7 fl (80.0-96.0); MONO # 0.7 10^3/uL (0.0-0.8); MONO % 8.4 % (0.0-5.0); NEUTROPHILS # 6.2 10^3/uL (1.5-8.5); NEUTROPHILS % 76.3 % (36.0-66.0); PLATELET COUNT, AUTOMATED 210 10^3/uL (150-450); RED BLOOD COUNT 4.46 10^6/uL (4.00-5.40); WHITE BLOOD COUNT 8.1 10^3/uL (4.0-10.0)
== END ==
LOC: M SFHCPLAZ 15:16
PROVIDERS: ATTEND Family Medicine
DX: D50.0 Iron deficiency anemia secondary to blood loss (chronic) (principal); R79.89 Other specified abnormal findings of blood chemistry; Z79.899 Other long term (current) drug therapy
CPT/HCPCS: 36415; 83550; 84439; 84443; 85025; 85046; G0463

== ENCOUNTER → 2019-10-28 | Outpatient (REF) | payer MEDICARE, MEDICAID ==
[2019-10-28 13:11] LABS: APPEARANCE, URINE TURBID (CLEAR); BACTERIA, URINE AUTO 1+ (NEGATIVE); BILIRUBIN, URINE AUTO NEGATIVE (NEGATIVE); BLOOD, URINE BLOOD 1+ (NEGATIVE); COLOR, URINE AMBER (YELLOW); GLUCOSE, URINE (UA) AUTO NEGATIVE (NEGATIVE); KETONE, URINE AUTO NEGATIVE (NEGATIVE); LEUKOCYTE ESTERASE, URINE AUTO 3+ (NEGATIVE); NITRITE, URINE AUTO NEGATIVE (NEGATIVE); PROTEIN, URINE AUTO 2+ mg/dL (NEGATIVE); RBC, URINE AUTO 13 /HPF (0-3); SPECIFIC GRAVITY URINE AUTO 1.012 (1.002-1.035); SQUAMOUS EPITHELIAL CELL UR AU 0 /HPF (0-6); UROBILINOGEN, URINE AUTO 0.2 mg/dL (0.0-2.0); WBC, URINE AUTO TNTC /HPF (0-3)
== END ==
LOC: M LAB REF 12:46
PROVIDERS: ATTEND Physician Assistant Medical
DX: N39.0 Urinary tract infection, site not specified (principal)

== ENCOUNTER 2020-06-13 03:53 | Emergency (ER) | payer MEDICARE, MEDICAID ==
[~2020-06-13 03:53] MED LIST changes: -AMLO10TA5 PO; +AMLO1TAB25 PO; +HYDROMORPHONE HCL 0.5 MG/ 0.5 ML SYRINGE (J1170 PER 1) ONE; +MORPHINE 4 MG/ML 1ML VIAL/SYRINGE (J2270) ONE
[2020-06-13] MEDS ORDERED: ONDANSETRON 4MG/2ML VIAL As Ordered ONE (04:25)
[2020-06-13] MEDS ORDERED: ONDANSETRON 4MG/2ML VIAL ONE (04:25)
[2020-06-13] MEDS ORDERED: MORPHINE 4 MG/ML 1ML VIAL/SYRINGE (J2270) As Ordered ONE ×2 (04:25→04:59)
[2020-06-13] MEDS ORDERED: MORPHINE 4 MG/ML 1ML VIAL/SYRINGE (J2270) ONE (04:25)
[2020-06-13] MEDS ORDERED: ISOVUE-370 76% 100ML VIAL As Ordered ONE (04:35)
[2020-06-13] MEDS ORDERED: HYDROMORPHONE HCL 0.5 MG/ 0.5 ML SYRINGE (J1170 PER 1) As Ordered ONE (05:52)
[2020-07-10 14:12] LABS: ALBUMIN 3.9 GM/DL (3.2-5.2); ALT/SGPT 21 U/L (12-78); BILIRUBIN,DIRECT 0.3 MG/DL (0.0-0.2); BLOOD UREA NITROGEN 26 MG/DL (7-18); CALCIUM LEVEL 9.7 MG/DL (8.8-10.2); CARBON DIOXIDE LEVEL 25 MEQ/L (21-32); CHLORIDE LEVEL 101 MEQ/L (98-107); CK-MB VALUE MASS < 1.0 NG/ML (<3.6); CPK CREATINE PHOSPHOKINASE 94 U/L (26-192); CREATININE FOR GFR 1.73 MG/DL (0.55-1.30); GLOMERULAR FILTRATION RATE 30.2 (>32); GLUCOSE, FASTING 229 MG/DL (70-100); LIPASE 159 U/L (73-393); MB/CK RELATIVE INDEX 1.06 (< OR =4); POTASSIUM SERUM 3.5 MEQ/L (3.5-5.1); SODIUM LEVEL 136 MEQ/L (136-145); TOTAL PROTEIN 8.8 GM/DL (6.4-8.2); TROPONIN I < 0.02 NG/ML (< 0.10)
[2020-07-17 10:51] LABS: BASO # 0.1 10^3/uL (0.0-0.2); BASO % 0.4 % (0.0-1.0); EOS # 0.3 10^3/uL (0.0-0.5); EOS % 2.3 % (0.0-3.0); HEMOGLOBIN 14.2 g/dl (12.0-15.5); LYMPH # 1.1 10^3/uL (1.5-5.0); LYMPH % 9.5 % (24.0-44.0); MEAN CORPUSCULAR HGB CONC 32.3 g/dl (32.0-36.5); MEAN CORPUSCULAR VOLUME 89.8 fl (80.0-96.0); MONO # 0.9 10^3/uL (0.0-0.8); MONO % 7.9 % (0.0-5.0); NEUTROPHILS # 9.4 10^3/uL (1.5-8.5); NEUTROPHILS % 79.6 % (36.0-66.0); PLATELET COUNT, AUTOMATED 194 10^3/uL (150-450); WHITE BLOOD COUNT 11.8 10^3/uL (4.0-10.0)
--- NOTE | 2020-08-04 17:41 | ECGEPIP ---
SINUS RHYTHM WANDERING BASELINE SEE SCANNED DOWNTIME REPORT MTDD
== END 2020-06-13 07:38 | disposition expired ==
LOC: M ED 03:53
DX: I71.3 Abdominal aortic aneurysm, ruptured (principal); J91.8 Pleural effusion in other conditions classified elsewhere; K80.20 Calculus of gallbladder without cholecystitis without obstruction; K57.90 Diverticulosis of intestine, part unspecified, without perforation or abscess without bleeding; E11.9 Type 2 diabetes mellitus without complications; R19.09 Other intra-abdominal and pelvic swelling, mass and lump; N26.1 Atrophy of kidney (terminal); N83.202 Unspecified ovarian cyst, left side; Z79.84 Long term (current) use of oral hypoglycemic drugs
CPT/HCPCS: 71275; 74175; 80048; 80076; 81001; 82550; 82553; 83690; 84484; 85025; 93005; J2270; J2405; Q9967